=== PATIENT | female | born 2000 | race Caucasian/White ===

== ENCOUNTER → 2021-04-26 15:25 | Outpatient (BNVA) | payer BC, MEDICAID, SELFPAY | PROVIDERS: Family Provider Family Medicine; PCP Family Medicine; Visit Provider Nurse Practitioner Women's Health | DX: N92.6 Irregular menstruation, unspecified (principal); N76.0 Acute vaginitis | CPT/HCPCS: 84146; 84439; 84443; 84702; 87070; 87077; 87205; 87491; 87591; 87661 ==

== ENCOUNTER → 2021-06-02 11:33 | Outpatient (BNVA) | payer BC, MEDICAID, SELFPAY | PROVIDERS: Family Provider Family Medicine; PCP Family Medicine; Visit Provider Nurse Practitioner | DX: J02.9 Acute pharyngitis, unspecified (principal); J02.0 Streptococcal pharyngitis | CPT/HCPCS: 87880 ==

== ENCOUNTER → 2022-05-18 12:31 | Outpatient (BNVA) | payer BC, MEDICAID, SELFPAY | PROVIDERS: Family Provider Family Medicine; PCP Family Medicine; Visit Provider Nurse Practitioner | DX: J02.9 Acute pharyngitis, unspecified (principal); J01.90 Acute sinusitis, unspecified | CPT/HCPCS: 87071; 87880 ==

== ENCOUNTER 2023-03-24 14:37 | Emergency (ER) | payer BC, MEDICAID, SELFPAY ==
[2023-03-24 14:43] VITALS: BP 124/86; PULSE 90; RESP 16; TEMP 36.9; O2SAT 98; BMI 19.9
--- NOTE | 2023-03-24 15:00 | US_ITS ---
WS: [id number] Obstetrical ultrasound, limited. COMPARISON: None. HISTORY: Bleeding and cramping. Single intrauterine gestation is identified. Heart rate at 153 bpm. [place]-rump length 7.1 cm. Normal amount of amniotic fluid surrounding the fetus. Cervix is closed. Placenta is developing anteriorly and fundally. No abruption or previa. There is mi ld distortion of the uterus along the lower uterine segment anterior to the cervix. This is probably a small [place]. Alternatively this could be an area of developing hematoma. This is not adjace nt to the placenta. IMPRESSION: 1. No placental abruption or retroplacental hematoma. 2. Normal cardiac activity. 3. Gestational age 13 weeks and 2 days. 4. Prominent soft tissue with mild distortion of the lower anterior uterine segment. This is probably a small [place] contraction. If there is significant vaginal bleeding suggest short interval f ollow-up to exclude developing hematoma. This area is along the anterior lower uterine segment just t o the LEFT of midline.
--- NOTE | 2023-03-24 15:01 | W.ED.FEMALGU ---
HPI - Female Genitourinary General: Chief complaint: Vaginal Bleeding Stated complaint: 14 weeks preg/ vaginal bleed Time Seen by Provider: 03/24/23 14:53 Source: patient Mode of arrival: ambulatory Limitations: no limitations History of Present Illness: Patient is a 22-year-old female at approximately 14 weeks here for concerns of vaginal bleeding. Patient states she first noticed a small amount of brown blood last (approximately 5 days ago). She states she contacted her OB provider Dr. Ferguson who recommended continuing to closely monitor the bleeding. Patient states she did not have any further bleeding that day and into Thursday but states she began bleeding again Thursday evening and has continued to bleed small amounts of old blood throughout the weekend. She states she passed a small brown clot. She states bleeding has never required anything more than a panty liner. She has had some mild intermittent cramping. Patient states she has not been sexually active since she found out she was . Has no new sexual partners or concern for STDs. Is not having any pain currently. She has not noticed any fevers. MD elicited complaint: vaginal bleeding Onset (ago): day(s) Severity: mild Quality of pain: cramping Consistency: intermittent Vaginal discharge: none Vaginal bleeding: scant and dark red Exacerbating factors: none Relieving factors: none Associated symptoms: Reports no associated symptoms; Deny abdominal pain, nausea or vaginal discharge Treatment prior to arrival: none Patient : Yes Review of Systems Const: Denies: fever(s), chills, body aches, fatigue or malaise Card: Denies: chest pain Resp: Denies: dyspnea GI: Denies: abdominal pain, nausea, vomiting or diarrhea : Reports: vaginal bleeding; Denies: flank pain, difficulty voiding, dysuria, urinary frequency, urinary urgency, urinary hesitancy, genital lesions, genital pruritis, vaginal odor or vaginal discharge Musc: Denies: back pain Skin/Breast: Denies: rash PFSH ED PFSH: Medical History No pertinent past medical history neghx:htn,dm,thyroid,dvt/pe PCP: Dr. Slaughter PCOS (polycystic ovarian syndrome) Tick bite of right shoulder Surgical History No pertinent past surgical history Family History Mother Chronic kidney disease (CKD) Sister Hypertension Thyroid disease Denies family history of Colon cancer Ovarian cancer Diabetes Hyperlipidemia Breast cancer Lung disease Cancer Uterine cancer Stroke Social History Smoking and tobacco status: current every day smoker Physical Exam Const: COMMON NORMALS: no acute distress, average body habitus, patient oriented x3, no limitations, healthy appearing, alert and well nourished Resp: COMMON NORMALS: normal respiratory effort and clear to auscultation bilaterally AUSCULTATION: clear to auscultation bilaterally Cardio: COMMON NORMALS: regular rate and regular rhythm RATE: regular rate RHYTHM: regular rhythm GI: COMMON NORMALS: Normal to inspection, nondistended, normoactive bowel sounds present, Soft to palpation, non-tender, No hepatosplenomegaly present and no masses PALPATION: Yes Soft to palpation and Yes No hepatosplenomegaly present : COMMON NORMALS: Yes no CVA tenderness BLADDER/KIDNEY EXAM: Yes no CVA tenderness Back/Pelvis: COMMON NORMALS: no CVA tenderness Extremity: COMMON NORMALS: no clubbing, cyanosis or edema, no calf tenderness and no pedal edema Neuro: COMMON NORMALS: patient oriented x3 SENSORIUM/ORIENTATION: Yes alert Skin: COMMON NORMALS: no rashes or lesions noted GENERAL SKIN EXAM: no rashes or lesions noted Course Vital Signs: Vital signs: Vital Signs Temperature 98.4 F 03/24/23 14:43 Pulse Rate 90 03/24/23 14:43 Respiratory Rate 16 03/24/23 14:43 Blood Pressure 124/86 03/24/23 14:43 Pulse Oximetry 98 03/24/23 14:43 Oxygen Delivery Me thod Room Air 03/24/23 14:43 MDM - Female Medical Decision Making Patient's vital signs are stable. Blood work is unremarkable. Ultrasound showing a live intrauterine normal-appearing 13w2s fetus. There was report of prominent soft tissue with mild distortion of the lower anterior uterine segment that could probably be a small [place] contraction but suggested short-term follow-up to exclude developing hematoma. Patient made aware and will follow up with OB. Patient is stable for discharge. Lab Data 03/24/23 15:13 03/24/23 15:13 Laboratory Results WBC 9.11 10^3/uL (3.29-11.43) 03/24/23 15:13 RBC 4.29 10^6/uL (3.85-5.65) 03/24/23 15:13 Hgb 13.50 g/dL (11.27-16.99) 03/24/23 15:13 Hct 36.9 % (36-47) 03/24/23 15:13 MCV 86.0 fl (85-98) 03/24/23 15:13 MCH 31.5 pg (27-33) 03/24/23 15:13 MCHC 36.6 g/dL (30-55) 03/24/23 15:13 RDW 12.7 % (12.1-15.1) 03/24/23 15:13 Plt Count 213 10^3/cmm (157-399) 03/24/23 15:13 MPV 10.2 fL (7.4-10.4) 03/24/23 15:13 Neut % (Auto) 76.9 % 03/24/23 15:13 Lymph % (Auto) 15.7 % 03/24/23 15:13 [place] % (Auto) 5.3 % 03/24/23 15:13 Eos % (Auto) 1.4 % 03/24/23 15:13 Baso % (Auto) 0.3 % 03/24/23 15:13 Neut # (Auto) 7.00 10^3/uL (1.8-7.7) 03/24/23 15:13 Lymph # (Auto) 1.4 10^3/uL (0.8-4.8) 03/24/23 15:13 [place] # (Auto) 0.5 10^3/uL (0.2-0.9) 03/24/23 15:13 Eos # (Auto) 0.1 10^3/uL (0.0-0.8) 03/24/23 15:13 Baso # (Auto) 0.0 10^3/uL (0.0-0.1) 03/24/23 15:13 Nucleated RBC % (auto) 0 % 03/24/23 15:13 Nucleated RBCs # 0.0 /100WBC 03/24/23 15:13 Sodium 137 mmol/L (136-145) 03/24/23 15:13 Potassium 3.3 mmol/L (3.5-5.1) L 03/24/23 15:13 Chloride 104 mmol/L (98-107) 03/24/23 15:13 Carbon Dioxide 21 mmol/L (22-29) L 03/24/23 15:13 Anion Gap 15.3 (5-19) 03/24/23 15:13 BUN 10 mg/dL (6-20) 03/24/23 15:13 Creatinine 0.6 mg/dL (0.5-0.9) 03/24/23 15:13 GFR Calculation 125.0 mL/min (90-130) 03/24/23 15:13 Glucose 85 mg/dL (65-115) 03/24/23 15:13 Calculated Osmolality 282 mOsm/kg (285-295) L 03/24/23 15:13 Calcium 8.7 mg/dL (8.5-10.5) 03/24/23 15:13 Total Bilirubin 0.6 mg/dL (0.15-1.2) 03/24/23 15:13 AST 12 U/L (0-32) 03/24/23 15:13 ALT 10 U/L (0-33) 03/24/23 15:13 Alkaline Phosphatase 43 U/L (35-105) 03/24/23 15:13 Total Protein 6.7 g/dL (6.6-8.7) 03/24/23 15:13 Albumin 4.2 g/dL (3.5-5.2) 03/24/23 15:13 Globulin 2.5 g/dL (1.3-4.6) 03/24/23 15:13 Ser , Semi-Qnt 72228.00 mIU/mL 03/24/23 15:13 Blood Type O Positive 03/24/23 15:13 Rho(D) Type Positive 03/24/23 15:13 All radiology interpretation(s) finalized by discharge Discharge Plan Discharge Patient Disposition: Home Clinical Impression: Vaginal bleeding in Condition: Stable Prescriptions: No Action M-Laura Plus 27 mg iron- 1 mg tablet 1 tab PO DAILY Discharge Orders: Discharge ED (Routine); Ordered 03/24/23 Ordered By: Sunshine Casiano Referrals: Shahid Ferguson MD [Physician] - Alfonso Slaughter MD [Primary Care Provider] - Activity Restrictions/Additional Instructions: As we discussed please follow-up with your OB provider. You may return to the emergency department for worsening or severe vaginal bleeding, vaginal pain or cramping, or any other concerns you may have. Coding Level of Care Code ED Practicing Dermatologist for Nallely Stewart
[2023-03-24 15:32] LABS: Basophils % 0.3 %; Eosinophils # 0.1 10^3/uL (0.0-0.8); Eosinophils % 1.4 %; Hematocrit 36.9 % (36-47); Lymphocytes # 1.4 10^3/uL (0.8-4.8); Lymphocytes % 15.7 %; Mean Corpuscular HGB Conc 36.6 g/dL (30-55); Mean Corpuscular Hemoglobin 31.5 pg (27-33); Mean Platelet Volume 10.2 fL (7.4-10.4); Monocytes # 0.5 10^3/uL (0.2-0.9); Monocytes % 5.3 %; Neutrophils % 76.9 %; Nucleated Red Blood Cells % 0 %; Platelet Count 213 10^3/cmm (157-399); Red Blood Count 4.29 10^6/uL (3.85-5.65); Red Cell Distribution Width 12.7 % (12.1-15.1); White Blood Count 9.11 10^3/uL (3.29-11.43)
[2023-03-24 16:11] LABS: Alanine Aminotransferase 10 U/L (0-33); Albumin Level 4.2 g/dL (3.5-5.2); Alkaline Phosphatase 43 U/L (35-105); Anion Gap 15.3 (5-19); Aspartate Amino Transferase 12 U/L (0-32); Blood Urea Nitrogen 10 mg/dL (6-20); Calcium 8.7 mg/dL (8.5-10.5); Carbon Dioxide 21 mmol/L (22-29); Chloride 104 mmol/L (98-107); Creatinine Clr Calc Pharmacy 149.0894; Globulin 2.5 g/dL (1.3-4.6); Glucose 85 mg/dL (65-115); Osmolality Calculated 282 mOsm/kg (285-295); Potassium 3.3 mmol/L (3.5-5.1); Sodium 137 mmol/L (136-145); Total Bilirubin 0.6 mg/dL (0.15-1.2); Total Protein 6.7 g/dL (6.6-8.7)
== END 2023-03-24 16:21 | disposition home or self-care (01) ==
PROVIDERS: Emergency Provider Physician Assistant; PCP Family Medicine
DX: O46.91 Antepartum hemorrhage, unspecified, first trimester (principal); O99.331 Smoking (tobacco) complicating pregnancy, first trimester; F17.210 Nicotine dependence, cigarettes, uncomplicated; Z3A.13 13 weeks gestation of pregnancy
CPT/HCPCS: 36415; 76805; 80053; 84702; 85025; 86900; 99284

== ENCOUNTER 2023-09-17 00:37 | Inpatient (IN) | payer BC, MEDICAID, SELFPAY ==
[2023-09-16] VITALS (13 sets, daily range): BP systolic 96–124; BP diastolic 52–87; PULSE 64–82; BMI 21.8
[2023-09-16 19:49] LABS: Basophils % 0.2 %; Eosinophils % 0.3 %; Lymphocytes # 1.3 10^3/uL (0.8-4.8); Lymphocytes % 12.4 %; Mean Corpuscular HGB Conc 34.3 g/dL (30-55); Mean Corpuscular Volume 87.5 fl (85-98); Mean Platelet Volume 10.1 fL (7.4-10.4); Monocytes # 0.7 10^3/uL (0.2-0.9); Monocytes % 7.1 %; Neutrophils % 79.8 %; Nucleated Red Blood Cells % 0 %; Platelet Count 248 10^3/cmm (157-399); Red Cell Distribution Width 12.7 % (12.1-15.1)
[2023-09-17] VITALS (57 sets, daily range): BP systolic 90–137; BP diastolic 50–86; PULSE 56–164; RESP 16–18; TEMP 36–37.1; O2SAT 97–99; BMI 21.8
[2023-09-17] MEDS: lactated ringers 1,000 ML 999 ML IV ×2 (00:06→01:06)
[2023-09-17] MEDS: ROPivacaine syringe 100 MG/50 ML SYRINGE 10 MG EPIDURAL ×3 (01:17→06:32)
--- NOTE | 2023-09-17 01:22 | P.ANESASSM_ITS ---
Pre-Anesthetic Assessment Height/Weight: Height 1.75 m Weight 67.132 kg Pulse BP Pulse Ox O2 Del Method 69 114/60 97 Room Air 09/17/23 01:17 09/17/23 01:17 09/17/23 01:17 09/16/23 19:20 Preop Diagnosis: IUP Labor Epidural Familial anesthetic complications: None Was Beta Miller taken within 24 hours: N/A Was Clonidine taken within 24 hours: N/A Last intake: 09/16/23 2100 MEAL CLEARS- CURRENT Social Tobacco (VAPE) and No alcohol Exam alert, oriented x 3 and clear to auscultation bilaterally Airway Submandibular: within normal limits Cervical ROM: within normal limits Mallampati: Class II Dentition: full History/ROS No significant history except as noted Pulmonary None reported CV/HEM None reported None reported Hepatic None reported GI Gastroesophageal Reflux Disease Metabolic None reported Musc/skel None reported Neuropsych None reported Anesthetic Plan ASA status: 2 Anesthesia: Regional (specify below) Other: Labor Epidural Medications/Allergies Home Medications Medication Instructions Recorded Confirmed Last Taken Type vitamin with calcium 1 tab PO DAILY 03/24/23 03/24/23 03/24/23 History no.72-iron 27 mg-folic acid 1 mg tablet (M- Plus) Allergies Allergy/AdvReac Type Severity Reaction Status Date / Time diphenhydramine Allergy ALGY-Hives Verified 05/18/22 12:25 [From Benadryl] Current Medications Generic Name Dose Route Start Last Admin Trade Name Freq PRN Reason Stop Dose Admin Lactated Ringer's 1,000 mls @ 999 mls/hr 09/16/23 23:38 09/17/23 01:06 Lactated Ringers IV 999 mls/hr .Q1H1M PRN Administration See label comments Ropivacaine 100 mg in 50 mls @ 10 mls/hr 09/16/23 23:45 09/17/23 01:17 Naropin Syringe EPIDURAL 10 mls/hr .Q5H ELIZABETH Administration PFSH Anesthesia Medical History No pertinent past medical history neghx:htn,dm,thyroid,dvt/pe PCP: Dr. Slaughter PCOS (polycystic ovarian syndrome) Tick bite of right shoulder Surgical History No pertinent past surgical history Family History Mother Chronic kidney disease (CKD) Sister Hypertension Thyroid disease Denies family history of Colon cancer Ovarian cancer Diabetes Hyperlipidemia Breast cancer Lung disease Cancer Uterine cancer Stroke Social History Smoking and tobacco/nicotine status: current every day tobacco/nicotine user Female Reproductive History : 1 Data Anesthesia 09/16/23 19:24 Short CBC 09/16/23 Range/Units 19:24 WBC 10.40 (3.29-11.43) 10^3/uL Hgb 12.00 (11.27-16.99) g/dL Hct 35.0 L (36-47) % MCV 87.5 (85-98) fl Plt Count 248 (157-399) 10^3/cmm Neut % (Auto) 79.8 % Neut # (Auto) 8.30 H (1.8-7.7) 10^3/uL Blood Bank 09/16/23 19:24 Blood Type O Positive Rho(D) Type Rh positive Antibody Screen Negative Cardiac Studies: 2 No Data to Display Anesthesia Procedures Epidural Time Out Performed: Yes Consents Signed: Procedure Consent Consent: from patient, risks and benefits reviewed and patient agrees to proceed Lumbar Level: L3-L4 Epidural position: sitting Epidural procedure: sterile prep of area, 1% lidocaine to numb the area, negative for paresthesia passed, test dose given, 1.5% xylocaine 1:200k epi, placed PCEA, no systemic response, sterile dressing applied, L.U.D. no apparent complications and 0.2% Ropiavacaine @ mls/hr (10) Additional Comments: BECCA @ 4.5cm , first attempt, - heme -csf. catheter threaded to 12cm with ease. Adequate analgesia achieved.
[2023-09-17] MEDS: ondansetron 2 mg/ML SDV 2 mL 4 MG IVP (03:50)
[2023-09-17] MEDS: dextrose 5%-lactated ringers 1,000 ML 125 ML IV (04:55)
--- NOTE | 2023-09-17 06:28 | P.HP_ITS ---
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 The patient presented overnight with contractions. She initially started at 2 cm and slowly progressed overnight. Patient is now completely dilated. Patient has had reassuring heart tones overnight patient has had an unremarkable with no complications. Present Details : 1 Para: 0 care: good care Ultrasounds: normal 1st trimester US and normal mid trimester US Obstetrical complications: none Medical complications OB: none Labs Rubella: Immune RPR: Negative GBS: Negative HBsAG: Negative Review of Systems 2 Const: Denies: fever(s), chills, body aches, fatigue or malaise Card: Denies: chest pain Resp: Denies: dyspnea GI: Denies: abdominal pain, nausea, vomiting or diarrhea : Denies: flank pain, difficulty voiding, dysuria, urinary frequency, urinary urgency or urinary hesitancy Musc: Denies: back pain Skin/Breast: Denies: rash Medications/Allergies Home Medications Medication Instructions Recorded Confirmed Last Taken Type vitamin with calcium 1 tab PO DAILY 03/24/23 03/24/23 03/24/23 History no.72-iron 27 mg-folic acid 1 mg tablet (M- Plus) Allergies Allergy/AdvReac Type Severity Reaction Status Date / Time diphenhydramine Allergy ALGY-Hives Verified 05/18/22 12:25 [From Benadryl] 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 Slaughter PCOS (polycystic ovarian syndrome) Tick bite of right shoulder Surgical History No pertinent past surgical history Family History Mother Chronic kidney disease (CKD) Sister Hypertension Thyroid disease Denies family history of Colon cancer Ovarian cancer Diabetes Hyperlipidemia Breast cancer Lung disease Cancer Uterine cancer Stroke Social History Smoking and tobacco/nicotine status: current every day tobacco/nicotine user History History History 2 0 Term Miscarriages/Ectopic Living Children Vitals/I&O/Wt Last Vital Signs Pulse 85 09/17/23 06:20 BP 115/80 09/17/23 06:20 Pulse Ox 98 09/17/23 02:37 O2 Del Method Room Air 09/16/23 19:20 09/16/23 09/16/23 09/17/23 14:59 22:59 06:59 Intake Total 2048 Balance 2048 Weight last 48 hrs Weight 67.132 kg Weight 67.132 kg Physical Exam 2 Const: COMMON NORMALS: no acute distress and healthy appearing HENMT: COMMON NORMALS: normocephalic and moist oral mucous membranes Eye: COMMON NORMALS: no scleral icterus Neck/C-Spine: COMMON NORMALS: supple and no JVD Resp: COMMON NORMALS: normal respiratory effort and No retractions Cardio: COMMON NORMALS: no JVD, regular rate and regular rhythm GI: OTHER: Gravid uterus : COMMON NORMALS: Yes normal external appearance Extremity: COMMON NORMALS: normal to inspection and no clubbing, cyanosis or edema Neuro: COMMON NORMALS: moves all extremities, no focal motor deficits and no sensory deficits noted Psych: COMMON NORMALS: mental status grossly normal, cooperative and normal affect Skin: COMMON NORMALS: no rashes or lesions noted Urinary Catheter Management: Storey: Cath Placed During This Visit: yes Reason for Continuing Indwelling Catheter: Accurate Measurement of Urinary Output in Critically Ill Patients Urinary Catheter Date of Insertion: 09/17/23 Urinary Catheter Time of Insertion: 02:45 Data 09/16/23 19:24 Results Labs OB ([facility]): 2 Obstetrics US 03/26/23 Blood Type O Positive 09/16/23 Antibody Screen Negative 09/16/23 Hct 35.0 % (36-47) L 09/16/23 Hgb 12.00 g/dL (11.27-16.99) 09/16/23 Rho(D) Type Rh positive 09/16/23 Plt Count 248 10^3/cmm (157-399) 09/16/23 TSH 1.14 uIU/mL (0.27-4.20) 04/26/21 Free T4 1.24 ng/dL (0.82-1.77) 04/26/21 Ser , Semi-Qnt 28045.00 mIU/mL 03/24/23 Prolactin 22.84 ng/mL (4.8-23.3) 04/26/21 A&P Assessment and plan (1) Term : Continue with labor management. Plan to proceed with vaginal delivery. (2) 39 weeks gestation of : Attestations 2 Medical Necessity Statement*: Patient admitted overnight for labor. Anticipate 2 midnight stay. Coding Level of Care Code Acute Code for Chg Fwd Diagnoses Term Z34.90 39 weeks gestation of Z3A.39
[2023-09-17] MEDS: oxytocin 30 UNIT/500 ML BAG 600 UNIT IV (07:07)
--- NOTE | 2023-09-17 07:27 | PM.DELIVERY ---
Delivery Note: Date of delivery: September 17, 2023 Pre-delivery diagnoses: Term intrauterine Post-delivery diagnoses: Same, viable infant male Procedure: Spontaneous vaginal delivery Delivering Physician: Dr. Shahid Ferguson Findings: 300 Pre-Delivery Course: This is a 22-year-old G1, P1 presented at 39 weeks 2 days with contractions. The patient progressed to completion over overnight without incident. Delivery: This patient was deemed to be completely dilated the patient was placed into the normal lithotomy position. Patient started pushing with contractions. After several rounds of contractions and pushing the patient delivered infant's head without difficulty. Soon followed by anterior shoulder and body. Infant was then placed on mother's abdomen. Her delay the cord was clamped and cut. Placenta was then delivered without complication. Review of the perineum did demonstrate a second-degree perineal tear and a left labial tear. Second-degree perineal tear was repaired with 2-0 Vicryl and the labial tear was repaired with 2-0 chromic. At the end of the procedure uterine tone was good and bleeding was minimal. Post-Delivery Status: Stable History History History 1 Term 1 Miscarriages/Ectopic 0 Living Children 1 A&P Assessment and plan (1) Vaginal delivery: Normal vaginal delivery without complication. Proceed with routine care Coding Level of Care Code Acute Code for Chg Fwd Diagnoses Vaginal delivery O80
[2023-09-17] MEDS: benzocaine-menthol 78 gm Canister 1 SPRAY TOPICAL (08:34)
[2023-09-17] MEDS: docusate sodium 100 mg Capsule PO ×2 (08:35→18:00)
[2023-09-17] MEDS: ibuprofen 800 mg tablet PO ×3 (08:35→20:00)
[2023-09-17] MEDS: acetaminophen 325 mg Tablet 650 MG PO ×2 (13:00→19:59)
[2023-09-17 19:48] LABS: Hematocrit 29.6 % (36-47); Mean Corpuscular HGB Conc 33.8 g/dL (30-55); Mean Corpuscular Hemoglobin 29.9 pg (27-33); Mean Corpuscular Volume 88.4 fl (85-98); Mean Platelet Volume 10.1 fL (7.4-10.4); Platelet Count 185 10^3/cmm (157-399); Red Blood Count 3.35 10^6/uL (3.85-5.65); Red Cell Distribution Width 12.6 % (12.1-15.1); White Blood Count 8.82 10^3/uL (3.29-11.43)
[2023-09-17] MEDS: lanolin oint 7 gm 1 APPLIC TOPICAL (19:59)
[2023-09-18] MEDS: acetaminophen 325 mg Tablet 650 MG PO ×2 (03:07→10:24)
[2023-09-18 05:00] VITALS: BP 117/74; PULSE 73; RESP 18; TEMP 36.6; O2SAT 97
--- NOTE | 2023-09-18 07:18 | P.DS_ITS ---
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 Hospital Course Hospital Course The patient's labor progressed as expected. Patient delivered a viable male without difficulty or complication. care was unremarkable. Patient is breast-feeding without difficulty. Lochia has been appropriate. Vital signs stable. Information Peripartum Data: Infant Delivery Method: Vaginal Laceration description: Perineal - 2nd Degree Episiotomy description: None complications: none Physical Exam Const: COMMON NORMALS: no acute distress and healthy appearing HENMT: COMMON NORMALS: normocephalic and moist oral mucous membranes HEAD & SCALP: normocephalic Eye: COMMON NORMALS: no scleral icterus Neck/C-Spine: COMMON NORMALS: supple and no JVD Resp: COMMON NORMALS: normal respiratory effort and No retractions Cardio: COMMON NORMALS: no JVD, regular rate and regular rhythm RATE: regular rate RHYTHM: regular rhythm GI: OTHER: Uterus firm and below the umbilicus : COMMON NORMALS: Yes normal external appearance Extremity: COMMON NORMALS: normal to inspection and no clubbing, cyanosis or edema Neuro: COMMON NORMALS: moves all extremities, no focal motor deficits and no sensory deficits noted Psych: COMMON NORMALS: mental status grossly normal, cooperative and normal affect Skin: COMMON NORMALS: no rashes or lesions noted GENERAL SKIN EXAM: no rashes or lesions noted Urinary Catheter Management: Storey: Cath Placed During This Visit: yes, but has since been removed by the nurse Reason for Continuing Indwelling Catheter: Decision to DC Catheter Urinary Catheter Date of Insertion: 09/17/23 Urinary Catheter Time of Insertion: 02:45 Date Urinary Catheter Removed: 09/17/23 Time Urinary Catheter Discontinued: 06:30 History History History 1 Term 1 Miscarriages/Ectopic 0 Living Children 1 Discharge Data Studies Completed and Pending Laboratory Results WBC 8.82 10^3/uL (3.29-11.43) 09/17/23 19: RBC 3.35 10^6/uL (3.85-5.65) L 09/17/23 19:37 Hgb 10.00 g/dL (11.27-16.99) L 09/17/23 19:37 Hct 29.6 % (36-47) L 09/17/23 19: MCV 88.4 fl (85-98) 09/17/23 19: MCH 29.9 pg (27-33) 09/17/23 19:37 MCHC 33.8 g/dL (30-55) 09/17/23 19:37 RDW 12.6 % (12.1-15.1) 09/17/23 19: Plt Count 185 10^3/cmm (157-399) 09/17/23 19: MPV 10.1 fL (7.4-10.4) 09/17/23 19: Neut % (Auto) 79.8 % 09/16/23: Lymph % (Auto) 12.4 % 09/16/23: [place] % (Auto) 7.1 % 09/16/23: Eos % (Auto) 0.3 % 09/16/23: Baso % (Auto) 0.2 % 09/16/23: Neut # (Auto) 8.30 10^3/uL (1.8-7.7) H 09/16/23: Lymph # (Auto) 1.3 10^3/uL (0.8-4.8) 09/16/23: [place] # (Auto) 0.7 10^3/uL (0.2-0.9) 09/16/23: Eos # (Auto) 0.0 10^3/uL (0.0-0.8) 09/16/23: Baso # (Auto) 0.0 10^3/uL (0.0-0.1) 09/16/23: Nucleated RBC % (auto) 0 % 09/16/23: Nucleated RBCs # 0.0 /100WBC 09/16/23: Blood Type O Positive 09/16/23: Rho(D) Type Rh positive 03/20/24 19:24 Antibody Screen Negative 09/16/23 19:24 Vitals Last Vital Signs Temp 97.9 F 09/18/23 05:00 Pulse 73 09/18/23 05:00 Resp 18 09/18/23 05:00 BP 117/74 09/18/23 05:00 Pulse Ox 97 09/18/23 05:00 O2 Del Method Room Air 09/18/23 05:00 Results Labs OB ([facility]): Obstetrics US 03/26/23 Blood Type O Positive 09/16/23 Antibody Screen Negative 09/16/23 Hct 29.6 % (36-47) L 09/17/23 Hgb 10.00 g/dL (11.27-16.99) L 09/17/23 Rho(D) Type Rh positive 09/16/23 Plt Count 185 10^3/cmm (157-399) 09/17/23 TSH 1.14 uIU/mL (0.27-4.20) 04/26/21 Free T4 1.24 ng/dL (0.82-1.77) 04/26/21 Ser , Semi-Qnt 06221.00 mIU/mL 03/24/23 Prolactin 22.84 ng/mL (4.8-23.3) 04/26/21 Discharge Plan Discharge Patient Disposition: Home Condition: Stable Prescriptions: Continued M- Plus 27 mg iron- 1 mg tablet 1 tab PO DAILY Discharge Orders: Discharge Order (Routine); Ordered 09/18/23 Ordered By: Shahid Ferguson Referrals: Shahid Ferguson MD [Physician] - 6 Weeks Discharge Diet: Usual diet Discharge Activity: Limit activity as instructed Patient Instructions: Depression (DC), Preeclampsia During (DC), Opioid Safety (DC), Hemorrhage (DC), OB Discharge Report, OB Food/Drug Interaction Guide, OB Care at Home, Opioid Safety, Abnormal Bleeding Discharge Attestations 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
[2023-09-18] MEDS: docusate sodium 100 mg Capsule PO (08:09)
[2023-09-18] MEDS: ibuprofen 800 mg tablet PO ×2 (08:09→15:37)
[2023-09-18 10:00] VITALS: BP 104/66; PULSE 80; RESP 18; TEMP 36.8; O2SAT 97
--- NOTE | 2023-09-18 14:15 | ANE.PACU2 ---
Inpatient post-anesthesia follow up: Airway intact: Yes Vital signs: Temperature 97.9 F Pulse Rate 73 Respiratory Rate 18 Blood Pressure 117/74 Pulse Oximetry 97 Oxygen Delivery Me thod Room Air Oxygen Flow Rate Fraction of Inspir ed Oxygen Hydration adequate: Yes Nausea and vomiting: No Pain level: 1 Mental status: Baseline Epidural Start/End: Epidural Start Date: 09/17/23 Epidural Start Time: 01:51 Epidural End Date: 09/17/23 Epidural End Time: 10:40
[2023-09-18 15:48] VITALS: BP 124/85; PULSE 74; RESP 16; TEMP 36.6; TEMP 36.7; O2SAT 98
[2023-09-18 16:08] VITALS: BP 124/85; PULSE 74; RESP 16; TEMP 36.6; O2SAT 98
== END 2023-09-18 16:08 | disposition home or self-care (01) | DRG 807 ==
LOC: OBGYN 07:28
PROVIDERS: Admitting Provider Family Medicine; PCP Family Medicine; Visit Provider Family Medicine
DX: O70.1 Second degree perineal laceration during delivery (principal); Z37.0 Single live birth; O99.334 Smoking (tobacco) complicating childbirth; F17.290 Nicotine dependence, other tobacco product, uncomplicated; Z3A.39 39 weeks gestation of pregnancy
CPT/HCPCS: 36415; 51702; 59025; 59409; 85025; 85027; 86850; 86900; 96374; 98960; 99211; J2405; J2590; J2795; J7120; J7121

== ENCOUNTER 2023-11-19 15:46 | Day surgery (SDC) | payer BC, MEDICAID, SELFPAY ==
[2023-11-19] VITALS (12 sets, daily range): BP systolic 99–121; BP diastolic 59–77; PULSE 58–82; RESP 10–18; TEMP 36.2–37.1; O2SAT 94–100
--- NOTE | 2023-11-19 16:15 | ED_ITS ---
HPI - Female Genitourinary 2 General: Chief complaint: Vaginal Bleeding Stated complaint: IUD issues sent by Dr Ruiz Time Seen by Provider: 11/19/23 15:54 Source: patient Mode of arrival: ambulatory Limitations: no limitations History of Present Illness: 23-year-old female states that she had a IUD placed last week states since then she been having pelvic pain along with vaginal bleeding she had an ultrasound done today that showed migration of the IUD in the pelvis patient was sent here by Dr. Ayala I have spoke to Dr. Ayala about this as well she rates her pain currently a 4 out of 10 her vitals here are normal she denies any vomiting or diarrhea or fevers Associated symptoms: Reports abdominal pain; Deny headache(s) or nausea Review of Systems 2 Const: Denies: fever(s), chills, body aches or change in appetite ENMT: Denies: throat pain or dental pain Card: Denies: chest pain Resp: Denies: dyspnea GI: Reports: abdominal pain; Denies: nausea, vomiting or diarrhea : Reports: vaginal bleeding; Denies: dysuria Musc: Denies: neck pain or back pain Skin/Breast: Denies: rash Neuro: Denies: headache(s) PFSH ED 2 PFSH: Medical History Vaginal delivery Tick bite of right shoulder PCOS (polycystic ovarian syndrome) No pertinent past medical history neghx:htn,dm,thyroid,dvt/pe PCP: Dr. Slaughter Surgical History No pertinent past surgical history Family History Mother Chronic kidney disease (CKD) Sister Hypertension Thyroid disease Denies family history of Colon cancer Ovarian cancer Diabetes Hyperlipidemia Breast cancer Lung disease Cancer Uterine cancer Stroke Social History Smoking and tobacco/nicotine status: current every day tobacco/nicotine user Physical Exam 2 Const: COMMON NORMALS: no acute distress, patient oriented x3 and healthy appearing HENMT: COMMON NORMALS: normocephalic and atraumatic HEAD & SCALP: n ormocephalic and atraumatic Eye: COMMON NORMALS: conjunctivae normal CONJUNCTIVA: Yes conjunctivae normal Neck/C-Spine: COMMON NORMALS: full ROM and supple Chest: COMMONS NORMALS: normal inspection of the chest Resp: COMMON NORMALS: normal respiratory effort Cardio: COMMON NORMALS: regular rate, regular rhythm and No murmurs present (Cardio) RATE: regular rate RHYTHM: regular rhythm GI: COMMON NORMALS: Normal to inspection, nondistended, normoactive bowel sounds present, Soft to palpation, non-tender and no masses PALPATION: Yes Soft to palpation Extremity: COMMON NORMALS: normal to inspection and full ROM Neuro: COMMON NORMALS: patient oriented x3, moves all extremities and no focal motor deficits Psych: COMMON NORMALS: mental status grossly normal, Normal thought process present and cooperative THOUGHT PROCESS: Normal thought process present Skin: COMMON NORMALS: no rashes or lesions noted and no wounds GENERAL SKIN EXAM: no rashes or lesions noted Course 2 Vital Signs: Vital signs: Vital Signs Temperature 97.9 F 11/19/23 16:00 Pulse Rate 75 11/19/23 16:00 Respiratory Rate 14 11/19/23 16:00 Blood Pressure 112/76 11/19/23 16:00 Pulse Oximetry 98 11/19/23 16:00 Oxygen Delivery Me thod Room Air 11/19/23 16:00 MDM - Female Medical Decision Making Patient presents here with a migrated IUD she was sent here after ultrasound Dr. Ayala has seen patient in the ER and is going to take her to the OR at this time. She has been stable here Medical Records I reviewed the patient's medical records. Lab Data I reviewed the patient's lab results. 11/19/23 16:18 11/19/23 16:18 Laboratory Results WBC 6.29 10^3/uL (3.29-11.43) 11/19/23 16:18 RBC 4.76 10^6/uL (3.85-5.65) 11/19/23 16:18 Hgb 13.30 g/dL (11.27-16.99) 11/19/23 16:18 Hct 40.7 % (36-47) 11/19/23 16:18 MCV 85.5 fl (85-98) 11/19/23 16:18 MCH 27.9 pg (27-33) 11/19/23 16:18 MCHC 32.7 g/dL (30-55) 11/19/23 16:18 RDW 12.6 % (12.1-15.1) 11/19/23 16:18 Plt Count 259 10^3/cmm (157-399) 11/19/23 16:18 MPV 10.1 fL (7.4-10.4) 11/19/23 16:18 Neut % (Auto) 63.1 % 11/19/23 16:18 Lymph % (Auto) 26.6 % 11/19/23 16:18 [place] % (Auto) 6.7 % 11/19/23 16:18 Eos % (Auto) 2.4 % 11/19/23 16:18 Baso % (Auto) 1.0 % 11/19/23 16:18 Neut # (Auto) 3.98 10^3/uL (1.8-7.7) 11/19/23 16:18 Lymph # (Auto) 1.7 10^3/uL (0.8-4.8) 11/19/23 16:18 [place] # (Auto) 0.4 10^3/uL (0.2-0.9) 11/19/23 16:18 Eos # (Auto) 0.2 10^3/uL (0.0-0.8) 11/19/23 16:18 Baso # (Auto) 0.1 10^3/uL (0.0-0.1) 11/19/23 16:18 Nucleated RBC % (auto) 0 % 11/19/23 16:18 Nucleated RBCs # 0.0 /100WBC 11/19/23 16:18 No radiology studies performed this visit Discharge Plan Discharge Patient Disposition: Admitted As Inpatient Clinical Impression: IUD migration Condition: Stable Prescriptions: No Action M- Plus 27 mg iron- 1 mg tablet 1 tab PO DAILY Referrals: Alfonso Slaughter MD [Primary Care Provider] - Coding Level of Care Code ED Waffle Machine Operator for Nallely Stewart
[2023-11-19 16:34] LABS: Basophils # 0.1 10^3/uL (0.0-0.1); Eosinophils # 0.2 10^3/uL (0.0-0.8); Eosinophils % 2.4 %; Hematocrit 40.7 % (36-47); Lymphocytes # 1.7 10^3/uL (0.8-4.8); Lymphocytes % 26.6 %; Mean Corpuscular HGB Conc 32.7 g/dL (30-55); Mean Corpuscular Hemoglobin 27.9 pg (27-33); Mean Corpuscular Volume 85.5 fl (85-98); Mean Platelet Volume 10.1 fL (7.4-10.4); Monocytes # 0.4 10^3/uL (0.2-0.9); Monocytes % 6.7 %; Neutrophils # 3.98 10^3/uL (1.8-7.7); Neutrophils % 63.1 %; Nucleated Red Blood Cells % 0 %; Platelet Count 259 10^3/cmm (157-399); Red Blood Count 4.76 10^6/uL (3.85-5.65); Red Cell Distribution Width 12.6 % (12.1-15.1); White Blood Count 6.29 10^3/uL (3.29-11.43)
[2023-11-19 17:05] LABS: Alanine Aminotransferase 25 U/L (0-33); Albumin Level 4.5 g/dL (3.5-5.2); Alkaline Phosphatase 70 U/L (35-105); Anion Gap 15.6 (5-19); Aspartate Amino Transferase 20 U/L (0-32); Blood Urea Nitrogen 9 mg/dL (6-20); Calcium 9.5 mg/dL (8.5-10.5); Carbon Dioxide 24 mmol/L (22-29); Chloride 103 mmol/L (98-107); Creatinine Clr Calc Pharmacy 108.3632; Globulin 2.9 g/dL (1.3-4.6); Glomerular Filtration Rate 88.9 mL/min (90-130); Glucose 84 mg/dL (65-115); Osmolality Calculated 286 mOsm/kg (285-295); Potassium 3.6 mmol/L (3.5-5.1); Sodium 139 mmol/L (136-145); Total Protein 7.4 g/dL (6.6-8.7)
[2023-11-19 17:36] LABS: OR HCG Qualitative Urine Negative (Negative)
--- NOTE | 2023-11-19 17:40 | P.ANESASSM_ITS ---
Pre-Anesthetic Assessment Height/Weight: Height 1.75 m Weight 57.606 kg Temp Pulse Resp BP Pulse Ox O2 Del Method 98.8 F 70 18 117/75 99 Room Air 11/19/23 17:16 11/19/23 17:16 11/19/23 17:16 11/19/23 17:16 11/19/23 17:16 11/19/23 17:16 Preop Diagnosis: intrauterine device migration Operation Date: 11/19/23 17:05 Proposed Procedures p IUD Removal(Not Applicable) - Leonides Ayala MD Familial anesthetic complications: None Was Beta Miller taken within 24 hours: N/A Was Clonidine taken within 24 hours: N/A Last intake: Intake Last Liquid Date 11/19/23 Last Liquid Time 14:00 Last Solid Date 11/18/23 Last Solid Time 18:00 Social No alcohol vapes daily Exam alert, oriented x 3 and clear to auscultation bilaterally Airway Mallampati: Class I Dentition: full History/ROS No significant history except as noted Pulmonary None reported CV/HEM None reported None reported Hepatic None reported GI Gastroesophageal Reflux Disease Metabolic None reported Musc/skel None reported Neuropsych None reported Anesthetic Plan ASA status: 1E Anesthesia: Anesthesia Evaluation and General Risk of > 500 ml blood loss (7ml/kg in children): Yes, adequate IV access and fluids planned Medications/Allergies Home Medications Medication Instructions Recorded Confirmed Last Taken Type vitamin with calcium 1 tab PO DAILY 03/24/23 09/17/23 03/24/23 History no.72-iron 27 mg-folic acid 1 mg tablet (M-Laura Plus) Allergies Allergy/AdvReac Type Severity Reaction Status Date / Time diphenhydramine Allergy ALGY-Hives Verified 11/19/23 16:05 [From Benadryl] Current Medications Generic Name Dose Route Start Last Admin Trade Name Freq PRN Reason Stop Dose Admin Sodium Chloride 1,000 mls @ 30 mls/hr 11/19/23 17:45 11/19/23 17:56 Sodium Chloride 0.9% IV 30 mls/hr .Q24H ELIZABETH Administration Scopolamine 1 patch 11/19/23 17:33 11/19/23 17:56 Scopolamine 1.5 Patch TRANSDERMA 11/19/23 17:34 1 patch ONCE ONE Administration PFSH Anesthesia Medical History Vaginal delivery Tick bite of right shoulder PCOS (polycystic ovarian syndrome) No pertinent past medical history neghx:htn,dm,thyroid,dvt/pe PCP: Dr. Slaughter Surgical History No pertinent past surgical history Family History Mother Chronic kidney disease (CKD) Sister Hypertension Thyroid disease Denies family history of Colon cancer Ovarian cancer Diabetes Hyperlipidemia Breast cancer Lung disease Cancer Uterine cancer Stroke Social History Smoking and tobacco/nicotine status: current every day tobacco/nicotine user Data Anesthesia 11/19/23 16:18 11/19/23 16:18 Short CBC 11/19/23 Range/Units 16:18 WBC 6.29 (3.29-11.43) 10^3/uL Hgb 13.30 (11.27-16.99) g/dL Hct 40.7 (36-47) % MCV 85.5 (85-98) fl Plt Count 259 (157-399) 10^3/cmm Neut % (Auto) 63.1 % Neut # (Auto) 3.98 (1.8-7.7) 10^3/uL BMP 11/19/23 16:18 Sodium 139 Potassium 3.6 Chloride 103 Carbon Dioxide 24 BUN 9 Creatinine 0.8 Glucose 84 Calcium 9.5 Liver Function 11/19/23 Range/Units 16:18 Total Bilirubin 1.0 (0.15-1.2) mg/dL AST 20 (0-32) U/L ALT 25 (0-33) U/L Alkaline Phosphatase 70 (35-105) U/L Albumin 4.5 (3.5-5.2) g/dL Cardiac Studies: 2 No Data to Display
--- NOTE | 2023-11-19 17:45 | P.HP_ITS ---
Providers/Chief Complaint 2 Admitting Physician: Leonides Ayala MD Primary Care Provider: Alfonso Slaughter MD Chief Complaint: IUD issues sent by Dr Ruiz [facility] [employer] History of Present Illness Mariann Aguilar is a 23 year old female s/p intrauterine device insertion November 10, 2023 noted worsening pain and bleeding past three days was seen by Dr. 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 Slaughter Surgical History No pertinent past surgical history Family History Mother Chronic kidney disease (CKD) Sister Hypertension Thyroid disease Denies family history of Colon cancer Ovarian cancer Diabetes Hyperlipidemia Breast cancer Lung disease Cancer Uterine cancer Stroke Social History Smoking and tobacco/nicotine status: current every day tobacco/nicotine user History History History 2 1 Term 1 Miscarriages/Ectopic 0 Living Children 1 Vitals/I&O/Wt Last Vital Signs Temp 98.8 F 11/19/23 17:16 Pulse 70 11/19/23 17:16 Resp 18 11/19/23 17:16 BP 117/75 11/19/23 17:16 Pulse Ox 99 11/19/23 17:16 O2 Del Method Room Air 11/19/23 17:16 Weight last 48 hrs Weight 127 lb Physical Exam 2 Narrative: comfortable, awake, alert afebrile, VS normal HEENT: normal Lungs: clear Cor: RRR Abd: soft, nondistended mild tenderness lower quadrants no rebound Ext: normal Data 11/19/23 16:18 11/19/23 16:18 Results Labs OB ([facility]): 2 Obstetrics US 03/26/23 Blood Type O Positive 09/16/23 Antibody Screen Negative 09/16/23 Hct 40.7 % (36-47) 11/19/23 Hgb 13.30 g/dL (11.27-16.99) 11/19/23 Rho(D) Type Rh positive 09/16/23 Plt Count 259 10^3/cmm (157-399) 11/19/23 TSH 1.14 uIU/mL (0.27-4.20) 04/26/21 Free T4 1.24 ng/dL (0.82-1.77) 04/26/21 Ser , Semi-Qnt 09349.00 mIU/mL 03/24/23 Prolactin 22.84 ng/mL (4.8-23.3) 04/26/21 A&P Assessment and plan (1) IUD migration: intrauterine device located in extra-uterine intra-peritoneal location plan laparoscopy, removal of IUD, possible open laparotomy procedures and risks explained to patient risks include, but not limited to, infection, bleeding, injury to internal organs such as bladder and bowel, anesthesia, blood transfusions patient understands and wants to proceed Attestations 2 Medical Necessity Statement*: patient with extra-uterine migration of intrauterine device, now for surgical removal Coding Level of Care Code Acute Code for Chg Fwd Diagnoses IUD migration T83.32XA Time Spent (min) 60
--- NOTE | 2023-11-19 17:52 | W.PM.OPSUD ---
Surgery/Procedure H&P Update DATE OF PROCEDURE: November 19, 2023 DATE H&P PERFORMED: 11/19/23 H&P UPDATE INFORMATION: I have reviewed H&P completed within last 30 days, I have examined patient prior to procedure and No changes to prior documentation PREOP DIAGNOSIS: intrauterine device migration PLANNED PROCEDURE: Operation Date: 11/19/23 17:05 Proposed Procedures p IUD Removal(Not Applicable) - Leonides Ayala MD
[2023-11-19] MEDS: sodium chloride 0.9% 1,000 ML 30 ML IV (17:56)
[2023-11-19] MEDS: scopolamine 1.5 Patch 1 PATCH TRANSDERMA (17:56)
[2023-11-19] MEDS: fentaNYL 50 mcg/mL INJ 2mL IVP (19:02)
[2023-11-19] MEDS: oxyCODONE-APAP 5-325 mg Tablet 2 TAB PO (20:00)
--- NOTE | 2023-11-19 20:10 | ANE.PACU2 ---
Inpatient post-anesthesia follow up: Airway intact: Yes Vital signs: Temperature 98.2 F Pulse Rate 60 Respiratory Rate 18 Blood Pressure 107/77 Pulse Oximetry 99 Oxygen Delivery Me thod Room Air Oxygen Flow Rate 6 Fraction of Inspir ed Oxygen Hydration adequate: Yes Nausea and vomiting: No Pain level: 1 Mental status: Baseline
--- NOTE | 2023-11-19 20:17 | PM.OP ---
Operative Report Date of procedure: November 19, 2023 Pre-op diagnosis: Intrauterine device in extrauterine position Pelvic pain Abnormal uterine bleeding Post-op diagnosis: Intact intrauterine device in posterior cul-de-sac 1 cm perforation in posterior uterine wall Otherwise normal uterus, tubes and ovaries Post-op findings: Uterus with 1 cm perforation of posterior uterine wall Intact intrauterine device in posterior cul-de-sac Otherwise normal uterus Normal tubes and ovaries Small amount of blood in posterior cul-de-sac Procedure done: Laparoscopy Removal of intrauterine device Implants: none Specimens removed/disposition: intrauterine device, complete and intact, sent to pathology Surgeon: Leonides Ayala MD Anesthesia: General Estimated blood loss (mL): 5 Complications: none Condition: stable Disposition: PACU Brief History: 23 y.o. Had intrauterine device placed November 10, 2023 Began to have pelvic pain and vaginal bleeding Pelvic sono showed intrauterine device in posterior cul-de-sac.. Procedure: Informed consent obtained. The patient was taken to the OR and placed supine on the table. General endotracheal anesthesia was given. The patient was then placed in dorsolithotomy position. The abdomen and perineum were prepped and draped in usual fashion. A 5 mm subumbilical skin incision was made. A laparoscopic trocar with sheath was inserted into the peritoneal cavity under direct vision with the laparoscope. Pneumoperitoneum was achieved. Two separate 5 mm incisions were made in the right and left mid-abdominal quadrants under direct visualization to accommodate additional trocars and sheaths. The pelvis was explored with the laparoscope. Small amount of blood was seen in the posterior cul-de-sac. A 1 cm perforation can be seen on the posterior uterine wall. An intact intrauterine device can be seen in the posterior cul-de-sac. This was extracted using an endograsper, seen to be complete and intact with both strings, and sent to pathology. No bleeding was seen. Normal ovaries and tubes were visualized. All instruments were then removed from the abdominal cavity after the pneumoperitoneum was allowed to escape. The skin incisions were closed with 4-O monocryl. Dermabond was applied. The patient was then awakened and taken to the recovery room in good condition. Postop condition stable. EBL 5 cc. There were no complications. Sponge and instrument counts were correct x two
== END 2023-11-19 20:06 | disposition home or self-care (01) ==
LOC: ER 16:59 → GSGYOACUTE 18:45 → ER 19:46 → OR 19:48
PROVIDERS: Anesthesiology; Emergency Provider Emergency Medicine; PCP Family Medicine; Visit Provider Obstetrics & Gynecology
PROC: 0UPD8HZ Removal of Contraceptive Device from Uterus and Cervix, Via Natural or Artificial Opening Endoscopic (ICD-10-PCS; CPT 58301; principal; 2023-11-19 17:05)
PROC: (CPT 49320; 2023-11-19 17:05)
DX: T83.89XA Other specified complication of genitourinary prosthetic devices, implants and grafts, initial encounter (principal); T83.39XA Other mechanical complication of intrauterine contraceptive device, initial encounter; Y76.8 Miscellaneous obstetric and gynecological devices associated with adverse incidents, not elsewhere classified
CPT/HCPCS: 58578; 36415; 80053; 81025; 85025; 88300; J2250; J2704; J2710; J3010; J3490; J7030

== ENCOUNTER → 2023-12-07 08:24 | Outpatient (BNVA) | payer BC, MEDICAID, SELFPAY | PROVIDERS: PCP Family Medicine; Visit Provider Obstetrics & Gynecology | DX: Z34.90 Encounter for supervision of normal pregnancy, unspecified, unspecified trimester (principal); Z98.890 Other specified postprocedural states; Z32.01 Encounter for pregnancy test, result positive | CPT/HCPCS: 84702 ==

== ENCOUNTER → 2023-12-08 11:28 | Outpatient (BNVA) | payer BC, MEDICAID, SELFPAY | PROVIDERS: PCP Family Medicine; Visit Provider Obstetrics & Gynecology | DX: Z32.01 Encounter for pregnancy test, result positive (principal) | CPT/HCPCS: 84702 ==

== ENCOUNTER → 2023-12-10 08:30 | Outpatient (BNVA) | payer BC, MEDICAID, SELFPAY | PROVIDERS: PCP Family Medicine; Visit Provider Obstetrics & Gynecology | DX: Z32.01 Encounter for pregnancy test, result positive (principal) | CPT/HCPCS: 84702 ==

== ENCOUNTER → 2024-01-05 08:14 | Outpatient (BNVA) | payer BC, MEDICAID, SELFPAY | PROVIDERS: PCP Family Medicine; Visit Provider Obstetrics & Gynecology | DX: Z36.87 Encounter for antenatal screening for uncertain dates (principal) | CPT/HCPCS: 76801 ==

== ENCOUNTER → 2024-02-02 09:54 | Outpatient (BNVA) | payer BC, MEDICAID, SELFPAY | PROVIDERS: PCP Family Medicine; Visit Provider Nurse Practitioner Women's Health | DX: O20.0 Threatened abortion (principal); Z3A.08 8 weeks gestation of pregnancy | CPT/HCPCS: 76801; 84315; 84702; 86850; 86900 ==

== ENCOUNTER → 2024-02-09 08:50 | Outpatient (BNVA) | payer BC, MEDICAID, SELFPAY | PROVIDERS: PCP Family Medicine; Visit Provider Nurse Practitioner Women's Health | DX: O03.9 Complete or unspecified spontaneous abortion without complication (principal) | CPT/HCPCS: 84702; 85025 ==

== ENCOUNTER → 2024-02-17 11:10 | Outpatient (BNVA) | payer BC, MEDICAID, SELFPAY | PROVIDERS: PCP Family Medicine; Visit Provider Obstetrics & Gynecology | DX: O03.4 Incomplete spontaneous abortion without complication (principal) | CPT/HCPCS: 76817 ==

== ENCOUNTER → 2024-05-15 10:24 | Outpatient (BNVA) | payer BC, MEDICAID, SELFPAY | PROVIDERS: PCP Family Medicine; Visit Provider Nurse Practitioner | DX: R05.9 Cough, unspecified (principal) | CPT/HCPCS: 87400; 87426 ==

== ENCOUNTER → 2024-06-20 09:18 | Outpatient (BNVA) | payer BC, MEDICAID, SELFPAY | PROVIDERS: PCP Family Medicine; Visit Provider Emergency Medicine | DX: J02.9 Acute pharyngitis, unspecified (principal); Z20.818 Contact with and (suspected) exposure to other bacterial communicable diseases | CPT/HCPCS: 87880 ==

== ENCOUNTER → 2024-06-29 10:26 | Outpatient (BNVA) | payer BC, MEDICAID, SELFPAY | PROVIDERS: PCP Family Medicine; Visit Provider Family Medicine | DX: J02.9 Acute pharyngitis, unspecified (principal) | CPT/HCPCS: 87071; 87880 ==

== ENCOUNTER → 2024-07-11 13:30 | Outpatient (BNVA) | payer BC, MEDICAID, SELFPAY | PROVIDERS: PCP Family Medicine; Visit Provider Nurse Practitioner Women's Health | DX: Z32.01 Encounter for pregnancy test, result positive (principal) | CPT/HCPCS: 81025; 84702; 86850; 86900 ==

== ENCOUNTER 2024-07-18 16:45 | Emergency (ER) | payer BC, MEDICAID, SELFPAY ==
[2024-07-18 17:03] VITALS: BP 114/78; PULSE 118; TEMP 36.8; O2SAT 100; BMI 18.7
[2024-07-18 17:48] LABS: Basophils % 0.2 %; Eosinophils % 0.3 %; Hematocrit 43.5 % (36-47); Lymphocytes # 0.3 10^3/uL (0.8-4.8); Lymphocytes % 3.2 %; Mean Corpuscular Hemoglobin 25.3 pg (27-33); Mean Corpuscular Volume 79.1 fl (85-98); Monocytes # 0.3 10^3/uL (0.2-0.9); Neutrophils % 93.2 %; Nucleated Red Blood Cells % 0 %; Platelet Count 294 10^3/cmm (157-399)
[2024-07-18 18:14] LABS: Alanine Aminotransferase 16 U/L (0-33); Albumin Level 4.9 g/dL (3.5-5.2); Alkaline Phosphatase 73 U/L (35-105); Anion Gap 17.9 (5-19); Aspartate Amino Transferase 13 U/L (0-32); Blood Urea Nitrogen 11 mg/dL (6-20); Calcium 9.5 mg/dL (8.5-10.5); Carbon Dioxide 22 mmol/L (22-29); Chloride 101 mmol/L (98-107); Creatinine Clr Calc Pharmacy 144.4843; Globulin 3.3 g/dL (1.3-4.6); Glomerular Filtration Rate 123.9 mL/min (90-130); Glucose 102 mg/dL (65-115); Lipase 21 U/L (13-60); Osmolality Calculated 284 mOsm/kg (285-295); Potassium 3.9 mmol/L (3.5-5.1); Sodium 137 mmol/L (136-145); Total Bilirubin 1.1 mg/dL (0.15-1.2); Total Protein 8.2 g/dL (6.6-8.7)
[2024-07-18 19:00] VITALS: BP 132/96; PULSE 110; RESP 16; O2SAT 100
--- NOTE | 2024-07-18 19:05 | USR_ITS ---
PROCEDURE INFORMATION: Exam: US First Trimester, Transabdominal and US , Transvaginal Exam date and time: 07/18/2024 7:37 PM Age: 23 years old Clinical indication: complicated by abdominal or pelvic pain; Generalized abdominal pain; First trimester (<14 weeks 0 days); Gestational age or lmp: 7w 6d by lmp; ; Patient HX: G3-p1-a1-l0 with severe pelvic cramping, no vag bleed. ; Additional info: Severe abd cramping, HX of sab LABS AND CLINICAL REPORTS: Choriogonadotropin in serum (Serum HCG): 42844 mIU/mL Last menstrual period start date: 05/24/2024 Gestational age (Established): 7 w 6 d Estimated due date (Established): 02/28/2025 TECHNIQUE: Imaging protocol: Real-time transabdominal obstetrical ultrasound of the maternal pelvis and a first trimester , less than 14 weeks 0 days, with image documentation. Transvaginal imaging was used for better evaluation of the fetus, adnexa, and/or cervix. COMPARISON: US OB transvaginal [id number] 02/17/2024 11:14 AM FINDINGS: GESTATION: Gestation: An intrauterine gestational sac, yolk sac and pole identified. Embryo/ cardiac activity (BPM): The estimated heart rate is 175-196 bpm. Extra-embryonic membranes/Placenta: Unremarkable. No subchorionic bleed. Amniotic/Chorionic fluid: Amniotic and extra-amniotic fluid are normal for gestational age. BIOMETRY: Gestational age (AUA): 8 w 3 d Estimated due date (AUA): The estimated due date is February 24, 2025. [place] rump length (CRL): The mean crown-rump length is 1.87 cm corresponding to an estimated ultrasound age of 8 weeks, 3 days. MATERNAL: Uterus: Uterus measures 10.16 cm x 8.64 cm x 4.91 cm. The uterus measures 10.2 x 4.9 x 8.6 cm. Cervix: The cervix is closed. Right ovary/adnexa: The right ovary measures 4.1 x 3.7 x 4.2 cm. There is a unilocular right ovarian cyst measuring 3.3 cm in diameter. Color and spectral Doppler interrogation of the right ovary demonstrates normal arterial and venous flow. Left ovary/adnexa: The left ovary measures 2.0 x 3.3 x 3.2 cm. Color and spectral Doppler interrogation of the left ovary demonstrates normal arterial and venous flow. Intraperitoneal space: No intraperitoneal free fluid. US/US OB <= 14 weeks fetus [id number] IMPRESSION: 1. Single viable intrauterine as detailed. 2. Negative exam for ovarian torsion. 3. Unilocular right ovarian cyst.
[2024-07-18 19:07] LABS: Bilirubin Urine Negative (Negative); Blood Urine Negative (Negative); Glucose Urine UA Negative (Normal); Ketones Urine 1+ (Negative); Leukocyte Esterase Urine 1+ (Negative); Nitrate Urine Negative (Negative); Protein Urine Trace (Negative); Specific Gravity, Urine 1.026 (1.005-1.030); Urine Appearance Cloudy (CLEAR); Urine Color Yellow (Yellow)
[2024-07-18] MEDS: sodium chloride 0.9% 1,000 ML 999 ML IV (19:08)
[2024-07-18] MEDS: ondansetron 2 mg/ML SDV 2 mL 4 MG IVP (19:08)
[2024-07-18 19:10] LABS: Add Urine Microscopic? YES; Bacteria Urine 1+ /hpf; Hyaline Casts Urine 2.05 /lpf; WBC Urine 21-50 /hpf (0-5)
[2024-07-18 19:14] LABS: Add Urine Culture? Yes
--- NOTE | 2024-07-18 19:20 | ED_ITS ---
HPI - Nausea/Vomiting/Diarrhea 2 General: Chief complaint: Nausea/Vomiting/Diarrhea Stated complaint: n,v,abd pain 8 weeks sent by organic section technical lead Time Seen by Provider: 07/18/24 18:44 Source: patient Mode of arrival: ambulatory Limitations: no limitations History of Present Illness: Patient is a 23-year-old female, A1, who is currently 8 weeks presenting to the emergency department with severe nausea and abdominal cramping onset today. States she has been throwing up all day, cannot keep anything down. Denies any vaginal bleeding or feeling she is going to pass out. States that with her last she miscarried, and was preeclamptic. Her OB is Dr. Ayala, states that she recently had a portable ultrasound but was told that they did not see much. She is tachycardic at this time, she is not reporting any fever or bowel or bladder changes. MD elicited complaint: nausea, vomiting and abdominal pain Onset (ago): hour(s) Associated nausea: Yes Associated abdominal pain: Yes Location of pain: Pelvis Quality: cramping Context: other () Associated symtoms: Reports nausea; Denies chest pain, diaphoresis, dizziness, dysuria, headache(s), palpitations or syncope Related Data Home Medications Medication Instructions Recorded Confirmed mv-mn no.97-folic 180 mcg-dha 25 tab PO 06/29/24 07/11/24 mg-herb no.293 25 mg chewable tablet (Alive Daily Support ) Previous Rx's Medication Instructions Recorded nitrofurantoin 100 mg PO BID 10 days #20 caps 07/18/24 monohydrate/macrocrystals 100 mg capsule (Macrobid) ondansetron 4 mg disintegrating 4 mg PO Q8H PRN nausea and 07/18/24 tablet vomiting #90 tabs Allergies Allergy/AdvReac Type Severity Reaction Status Date / Time diphenhydramine Allergy ALGY-Hives Verified 07/18/24 17:09 [From Benadryl] Review of Systems 2 General: Reports: 10 or more systems reviewed and unremarkable except in HPI and below Const: Denies: fever(s), chills, change in appetite, change in weight or diaphoresis ENMT: Denies: throat pain or hoarseness Card: Denies: chest pain, palpitations, lightheadedness or syncope Resp: Denies: dyspnea, productive cough or wheezing GI: Reports: abdominal pain, nausea and vomiting; Denies: diarrhea : Denies: flank pain, difficulty voiding, dysuria, urinary frequency, urinary urgency or vaginal bleeding Musc: Denies: neck pain or back pain Skin/Breast: Denies: rash or new lesions Neuro: Denies: headache(s) or dizziness PFSH ED 2 PFSH: Medical History Vaginal delivery Tick bite of right shoulder PCOS (polycystic ovarian syndrome) No pertinent past medical history neghx:htn,dm,thyroid,dvt/pe PCP: Dr. Slaughter Surgical History No pertinent past surgical history Family History Mother Chronic kidney disease (CKD) Sister Hypertension Thyroid disease Denies family history of Colon cancer Ovarian cancer Diabetes Hyperlipidemia Breast cancer Lung disease Cancer Uterine cancer Stroke Social History Smoking and tobacco/nicotine status: current every day tobacco/nicotine user (vape use) Physical Exam 2 Const: COMMON NORMALS: no acute distress, average body habitus, patient oriented x3, no limitations, alert and well nourished GENERAL APPEARANCE: c ooperative ORIENTATION/CONSCIOUSNESS: Yes awake OTHER: Tired appearing HENMT: COMMON NORMALS: normocephalic, atraumatic and moist oral mucous membranes HEAD & SCALP: normocephalic and atraumatic Eye: COMMON NORMALS: Equal, round and reactive pupils present, EOMs intact bilaterally, conjunctivae normal and normal visual fuentes by confrontation C ONJUNCTIVA: Yes conjunctivae normal PUPIL: Yes Equal, round and reactive pupils present Neck/C-Spine: COMMON NORMALS: full ROM, supple, no meningeal signs and no JVD Resp: COMMON NORMALS: normal respiratory effort, No retractions, No use of accessory muscles and clear to auscultation bilaterally AUSCULTATION: clear to auscultation bilaterally, no crackles, no rales, no rhonchi and no wheezes Cardio: COMMON NORMALS: no JVD, regular rate, regular rhythm, S1 normal heart sound present, S2 normal heart sound present, No gallops present (Cardio), No clicks present (Cardio), No murmurs present (Cardio), No rub (Cardio) and Peripheral pulses 2+ throughout RATE: regular rate RHYTHM: regular rhythm HEART SOUNDS: S1 normal heart sound present and S2 normal heart sound present PERIPHERAL PULSES: Peripheral pulses 2+ throughout GI: COMMON NORMALS: Normal to inspection, nondistended, normoactive bowel sounds present, Soft to palpation, No hepatosplenomegaly present and no masses AUSCULTATION: Yes normoactive bowel sounds PALPATION: Yes Soft to palpation, Yes Tenderness to palpation present (GI) (Suprapubic/bilateral lower quadrants), No Guarding due to palpation present (GI), No Rigid due to palpation and Yes No hepatosplenomegaly present RECTAL EXAM: deferred : COMMON NORMALS: Yes no CVA tenderness BLADDER/KIDNEY EXAM: Yes no CVA tenderness Back/Pelvis: COMMON NORMALS: no CVA tenderness Extremity: COMMON NORMALS: normal to inspection and full ROM Neuro: COMMON NORMALS: patient oriented x3, moves all extremities, no focal motor deficits and no sensory deficits noted SENSORIUM/ORIENTATION: Yes alert MENINGEAL SIGNS: Yes no meningeal signs Psych: COMMON NORMALS: mental status grossly normal, cooperative and speech normal SPEECH: Yes normal speech Skin: COMMON NORMALS: no rashes or lesions noted GENERAL SKIN EXAM: no rashes or lesions noted Course 2 Vital Signs: Vital signs: Vital Signs Temperature 98.2 F 07/18/24 17:03 Pulse Rate 119 H 07/18/24 21:16 Respiratory Rate 18 07/18/24 21:16 Blood Pressure 115/64 07/18/24 21:16 Pulse Oximetry 97 07/18/24 21:16 Oxygen Delivery Me thod Room Air 07/18/24 19:00 MDM - Nausea/Vomiting/Diarrhea Medical Decision Making Patient presented with severe nausea abdominal cramping today. History of spontaneous . Tachycardic, afebrile. Blood pressure has been normal, she did note a history of preeclampsia. Urinalysis did show signs of urinary tract infection during . Lab work unremarkable, normal kidney function. Potentially dehydration, she was given liter of fluids for this. Does note feeling better after also receiving Zofran, we will start her on Macrobid and have her follow-up with OB, she already has an appointment on Wednesday. She is comfortable with this plan, will be discharged home after fluids done running. Discussed case with Dr. Fitzpatrick. Strict return precautions were given such as any bleeding or worsening of symptoms. Lab Data 07/18/24 17:29 07/18/24 17: Radiology Impressions Ultrasound 07/18/24 19:05 IMPRESSION: 1. Single viable intrauterine as detailed. 2. Negative exam for ovarian torsion. 3. Unilocular right ovarian cyst. Laboratory Results WBC 8.70 10^3/uL (3.29-11.43) 07/18/24 17: RBC 5.50 10^6/uL (3.85-5.65) 07/18/24 17: Hgb 13.90 g/dL (11.27-16.99) 07/18/24: Hct 43.5 % (36-47) 07/18/24 17: MCV 79.1 fl (85-98) L 07/18/24 17: MCH 25.3 pg (27-33) L 07/18/24: MCHC 32.0 g/dL (30-55) 07/18/24: RDW 15.0 % (12.1-15.1) 07/18/24: Plt Count 294 10^3/cmm (157-399) 07/18/24: MPV 10.0 fL (7.4-10.4) 07/18/24: Neut % (Auto) 93.2 % 07/18/24: Lymph % (Auto) 3.2 % 07/18/24: [place] % (Auto) 3.0 % 07/18/24: Eos % (Auto) 0.3 % 07/18/24: Baso % (Auto) 0.2 % 07/18/24: Neut # (Auto) 8.10 10^3/uL (1.8-7.7) H 07/18/24: Lymph # (Auto) 0.3 10^3/uL (0.8-4.8) L 07/18/24 17: [place] # (Auto) 0.3 10^3/uL (0.2-0.9) 07/18/24:29 Eos # (Auto) 0.0 10^3/uL (0.0-0.8) 07/18/24 17: Baso # (Auto) 0.0 10^3/uL (0.0-0.1) 07/18/24 17: Nucleated RBC % (auto) 0 % 07/18/24 17: Nucleated RBCs # 0.0 /100WBC 07/18/24 17: Sodium 137 mmol/L (136-145) 07/18/24 17: Potassium 3.9 mmol/L (3.5-5.1) 07/18/24 17: Chloride 101 mmol/L (98-107) 07/18/24 17: Carbon Dioxide 22 mmol/L (22-29) 07/18/24: Anion Gap 17.9 (5-19) 07/18/24 17: BUN 11 mg/dL (6-20) 07/18/24 17: Creatinine 0.6 mg/dL (0.5-0.9) 07/18/24 17: GFR Calculation 123.9 mL/min (90-130) 07/18/24 17: Glucose 102 mg/dL (65-115) 07/18/24 17: Calculated Osmolality 284 mOsm/kg (285-295) L 07/18/24 17: Calcium 9.5 mg/dL (8.5-10.5) 07/18/24 17: Total Bilirubin 1.1 mg/dL (0.15-1.2) 07/18/24 17: AST 13 U/L (0-32) 07/18/24 17: ALT 16 U/L (0-33) 07/18/24 17: Alkaline Phosphatase 73 U/L (35-105) 07/18/24 17: Total Protein 8.2 g/dL (6.6-8.7) 07/18/24 17: Albumin 4.9 g/dL (3.5-5.2) 07/18/24 17: Globulin 3.3 g/dL (1.3-4.6) 07/18/24 17: Lipase 21 U/L (13-60) 07/18/24 17: Ser , Semi-Qnt 86226.00 mIU/mL 07/18/24 17:29 Urine Color Yellow (Yellow) 07/18/24 19:00 Urine Appearance Cloudy (CLEAR) A 07/18/24 19:00 Urine pH 7.0 (5-7) 07/18/24 19:00 Ur Specific [place] 1.026 (1.005-1.030) 07/18/24 19:00 Urine Protein Trace (Negative) A 07/18/24 19:00 Urine Glucose (UA) Negative (Normal) 07/18/24 19:00 Urine Ketones 1+ (Negative) H 07/18/24 19:00 Urine Blood Negative (Negative) 07/18/24 19:00 Urine Nitrate Negative (Negative) 07/18/24 19: Urine Bilirubin Negative (Negative) 07/18/24 19: Urine Urobilinogen 1.0 mg/dL (Negative) 07/18/24 19:00 Ur Leukocyte Esterase 1+ (Negative) A 07/18/24 19:00 Urine RBC 3-5 /hpf (0-2) 07/18/24 19:00 Urine WBC 21-50 /hpf (0-5) H 07/18/24 19:00 Ur Squamous Epith Cells 6-10 /hpf (0-5) 07/18/24 19:00 Amorphous Sediment Not Reportable 07/18/24 19:00 Urine Bacteria 1+ /hpf (NONE) H 07/18/24 19:00 Hyaline Casts 2.05 /lpf 07/18/24 19:00 All radiology interpretation(s) finalized by discharge Discharge Plan Discharge Patient Disposition: Home Clinical Impression: Infection of urinary tract during Qualifiers: Trimester: first trimester Qualified Code(s): O23.41 - Unspecified infection of urinary tract in , first trimester Condition: Stable Prescriptions: New nitrofurantoin monohyd/m-cryst [Macrobid] 100 mg capsule 100 mg PO BID 10 Days Qty: 20 0RF Rx Instructions: must administer with a meal/food No Action Alive Daily Support 180 mcg-25 mg- 25 mg tablet,chewable PO ondansetron 4 mg tablet,disintegrating 4 mg PO Q8H PRN (Reason: nausea and vomiting) Qty: 90 0RF Rx Instructions: take one tab as needed for nausea Discharge Orders: Discharge ED (Routine); Ordered 07/18/24 Ordered By: Sanchez Cabral Referrals: Alfonso Slaughter MD [Primary Care Provider] - Patient Instructions: Urinary Tract Infection in (ED) Activity Restrictions/Additional Instructions: Take Macrobid as prescribed. Follow-up with OB on Thursday as planned. Drink plenty of fluids. Please return with any vaginal bleeding, worsening pain, or any general worsening of symptoms. Coding Level of Care Code ED Wind Field Manager for Nallely Stewart
[2024-07-18] MEDS: nitrofurantoin SR (BID) 100 mg Capsule PO (21:04)
[2024-07-18] MEDS: acetaminophen 500 mg Tablet 1000 MG PO (21:04)
[2024-07-18 21:16] VITALS: BP 115/64; PULSE 119; RESP 18; O2SAT 97
[2024-07-18 21:17] VITALS: BP 126/67; PULSE 112; O2SAT 96
== END 2024-07-18 21:19 | disposition home or self-care (01) ==
PROVIDERS: Emergency Medicine; Emergency Provider Physician Assistant; PCP Family Medicine
DX: O23.41 Unspecified infection of urinary tract in pregnancy, first trimester (principal); F17.290 Nicotine dependence, other tobacco product, uncomplicated; Z3A.08 8 weeks gestation of pregnancy
CPT/HCPCS: 36415; 76801; 80053; 81001; 83690; 84702; 85025; 87086; 96374; 99284; J2405; J7030

== ENCOUNTER → 2024-08-09 10:53 | Outpatient (BNVA) | payer BC, MEDICAID, SELFPAY | PROVIDERS: PCP Family Medicine; Visit Provider Nurse Practitioner Women's Health | DX: Z34.90 Encounter for supervision of normal pregnancy, unspecified, unspecified trimester (principal) | CPT/HCPCS: 80307; 84315; 85025; 86592; 86762; 86803; 86850; 86900; 87086; 87340; 87491; 87591; 87661; 87806 ==

== ENCOUNTER → 2024-08-24 09:29 | Outpatient (BNVA) | payer BC, MEDICAID, SELFPAY | PROVIDERS: PCP Family Medicine; Visit Provider Obstetrics & Gynecology | DX: Z34.90 Encounter for supervision of normal pregnancy, unspecified, unspecified trimester (principal); Z01.419 Encounter for gynecological examination (general) (routine) without abnormal findings | CPT/HCPCS: 84315; 87624 ==

== ENCOUNTER → 2024-09-14 14:18 | Outpatient (BNVA) | payer BC, MEDICAID, SELFPAY | PROVIDERS: PCP Family Medicine; Visit Provider Nurse Practitioner Women's Health | DX: Z34.90 Encounter for supervision of normal pregnancy, unspecified, unspecified trimester (principal); O23.40 Unspecified infection of urinary tract in pregnancy, unspecified trimester | CPT/HCPCS: 82105; 84315; 87086 ==

== ENCOUNTER → 2024-10-12 14:28 | Outpatient (BNVA) | payer BC, MEDICAID, SELFPAY | PROVIDERS: PCP Family Medicine; Visit Provider Obstetrics & Gynecology | DX: Z34.92 Encounter for supervision of normal pregnancy, unspecified, second trimester (principal) | CPT/HCPCS: 76805 ==

== ENCOUNTER → 2024-10-20 14:58 | Outpatient (BNVA) | payer BC, MEDICAID, SELFPAY | PROVIDERS: PCP Family Medicine; Visit Provider Obstetrics & Gynecology | DX: Z34.90 Encounter for supervision of normal pregnancy, unspecified, unspecified trimester (principal) | CPT/HCPCS: 84315 ==

== ENCOUNTER → 2024-11-10 14:21 | Outpatient (BNVA) | payer BC, MEDICAID, SELFPAY | PROVIDERS: PCP Family Medicine; Visit Provider Nurse Practitioner Women's Health | DX: Z34.90 Encounter for supervision of normal pregnancy, unspecified, unspecified trimester (principal) | CPT/HCPCS: 84315 ==

== ENCOUNTER → 2024-12-08 14:24 | Outpatient (BNVA) | payer BC, MEDICAID, SELFPAY | PROVIDERS: PCP Family Medicine; Visit Provider Obstetrics & Gynecology | DX: Z34.90 Encounter for supervision of normal pregnancy, unspecified, unspecified trimester (principal) | CPT/HCPCS: 82950; 84315; 85025 ==

== ENCOUNTER → 2024-12-22 15:47 | Outpatient (BNVA) | payer BC, MEDICAID, SELFPAY | PROVIDERS: PCP Family Medicine; Visit Provider Obstetrics & Gynecology | DX: Z34.90 Encounter for supervision of normal pregnancy, unspecified, unspecified trimester (principal) | CPT/HCPCS: 84315 ==

== ENCOUNTER 2024-12-23 12:08 | Outpatient (CLI) | payer BC, MEDICAID, SELFPAY ==
[2024-12-23 12:11] VITALS: BMI 22.1
[2024-12-23 12:21] VITALS: BP 121/76; PULSE 81
[2024-12-23 12:26] VITALS: RESP 15
[2024-12-23 12:36] VITALS: BP 114/66; PULSE 76
[2024-12-23 12:36] LABS: Bilirubin Urine Negative (Negative); Blood Urine 3+ (Negative); Glucose Urine UA Negative (Normal); Ketones Urine Trace (Negative); Leukocyte Esterase Urine 1+ (Negative); Nitrate Urine Negative (Negative); Protein Urine Trace (Negative); Specific Gravity, Urine 1.019 (1.005-1.030); Urine Appearance Cloudy (CLEAR); Urine Color Yellow (Yellow); pH Urine 6.5 (5-7)
[2024-12-23 12:38] LABS: Bacteria Urine None Seen /hpf; Hyaline Casts Urine 1.65 /lpf; RBC Urine >100 /hpf (0-2); Squamous Epithelial Cell Urine 0-5 /hpf (0-5)
[2024-12-23 12:39] LABS: Add Urine Culture? Yes
[2024-12-23 12:51] VITALS: BP 114/69; PULSE 79
[2024-12-23 13:03] VITALS: BP 114/69; PULSE 79; RESP 15
== END 2024-12-23 13:03 | disposition home or self-care (01) ==
LOC: OPOB 12:08 → OBGYN 12:09
PROVIDERS: PCP Family Medicine; Visit Provider Obstetrics & Gynecology
DX: O26.899 Other specified pregnancy related conditions, unspecified trimester (principal); Z3A.00 Weeks of gestation of pregnancy not specified; R10.84 Generalized abdominal pain
CPT/HCPCS: 59025; 81001; 87086; 99211

== ENCOUNTER → 2025-01-05 16:11 | Outpatient (BNVA) | payer BC, MEDICAID, SELFPAY | PROVIDERS: PCP Family Medicine; Visit Provider Obstetrics & Gynecology | DX: Z34.90 Encounter for supervision of normal pregnancy, unspecified, unspecified trimester (principal) | CPT/HCPCS: 84315 ==

== ENCOUNTER → 2025-01-19 13:38 | Outpatient (BNVA) | payer BC, MEDICAID, SELFPAY | PROVIDERS: PCP Family Medicine; Visit Provider Nurse Practitioner Women's Health | DX: Z36.9 Encounter for antenatal screening, unspecified (principal) | CPT/HCPCS: 76816 ==

== ENCOUNTER → 2025-02-02 13:40 | Outpatient (BNVA) | payer BC, MEDICAID, SELFPAY | PROVIDERS: PCP Family Medicine; Visit Provider Nurse Practitioner Women's Health | DX: Z3A.36 36 weeks gestation of pregnancy (principal); Z34.90 Encounter for supervision of normal pregnancy, unspecified, unspecified trimester | CPT/HCPCS: 84315; 87081 ==

== ENCOUNTER → 2025-02-09 15:44 | Outpatient (BNVA) | payer BC, MEDICAID, SELFPAY | PROVIDERS: PCP Family Medicine; Visit Provider Obstetrics & Gynecology | DX: Z34.90 Encounter for supervision of normal pregnancy, unspecified, unspecified trimester (principal) | CPT/HCPCS: 84315 ==

== ENCOUNTER 2025-02-12 08:43 | Outpatient (CLI) | payer BC, MEDICAID, SELFPAY ==
[2025-02-12 08:43] VITALS: BMI 23.6
[2025-02-12 08:59] VITALS: BP 116/72; PULSE 85
[2025-02-12 09:20] VITALS: BP 111/75; PULSE 92
[2025-02-12 09:35] VITALS: BP 110/75; PULSE 84
[2025-02-12 09:42] VITALS: BP 110/75; PULSE 84; RESP 16; O2SAT 98
== END 2025-02-12 09:42 | disposition home or self-care (01) ==
LOC: OPOB 08:49 → OBGYN 08:50
PROVIDERS: PCP Family Medicine; Visit Provider Obstetrics & Gynecology
DX: O26.899 Other specified pregnancy related conditions, unspecified trimester (principal); Z3A.00 Weeks of gestation of pregnancy not specified; R10.9 Unspecified abdominal pain
CPT/HCPCS: 59025; 99211

== ENCOUNTER 2025-02-18 21:28 | Outpatient (CLI) | payer BC, MEDICAID, SELFPAY ==
[2025-02-18] VITALS (9 sets, daily range): BP systolic 83–118; BP diastolic 53–78; PULSE 66–75; BMI 23.8
[2025-02-19 00:04] VITALS: BP 110/69; PULSE 61
[2025-02-19 00:18] VITALS: BP 116/67; PULSE 70
[2025-02-19 01:17] VITALS: BP 116/67; PULSE 79; RESP 16; TEMP 36.1; O2SAT 99
== END 2025-02-19 00:28 | disposition home or self-care (01) ==
LOC: OPOB 21:29 → OBGYN 21:30
PROVIDERS: PCP Family Medicine; Visit Provider Obstetrics & Gynecology
DX: O26.899 Other specified pregnancy related conditions, unspecified trimester (principal); Z3A.00 Weeks of gestation of pregnancy not specified; R10.9 Unspecified abdominal pain
CPT/HCPCS: 59025; 99211

== ENCOUNTER 2025-02-22 01:28 | Inpatient (IN) | payer BC, MEDICAID, SELFPAY ==
[2025-02-21] VITALS (18 sets, daily range): BP systolic 112–133; BP diastolic 65–85; PULSE 75–104; RESP 17; O2SAT 92–96; BMI 23.9
[2025-02-21 21:46] LABS: Hematocrit 32.1 % (36-47); Hemoglobin 10.20 g/dL (11.27-16.99); Mean Corpuscular HGB Conc 31.8 g/dL (30-55); Mean Corpuscular Hemoglobin 24.5 pg (27-33); Mean Corpuscular Volume 77.0 fl (85-98); Nucleated Red Blood Cells % 0 %; Platelet Count 244 10^3/cmm (157-399); Red Blood Count 4.17 10^6/uL (3.85-5.65); White Blood Count 9.71 10^3/uL (3.29-11.43)
[2025-02-21] MEDS: ROPivacaine syringe 100 MG/50 ML SYRINGE 13 MG EPIDURAL (23:05)
--- NOTE | 2025-02-21 23:10 | ANES.PREANE2 ---
Pre-Anesthetic Assessment Height/Weight: Height 1.75 m Weight 73.482 kg Pulse Resp BP Pulse Ox O2 Del Method 83 17 122/74 96 Room Air 02/21/25 23:03 02/21/25 21:06 02/21/25 23:03 02/21/25 22:58 02/21/25 21:05 Epidural Familial anesthetic complications: None Was Beta Miller taken within 24 hours: N/A Was Clonidine taken within 24 hours: N/A Last intake: 1999 solids Social No alcohol and No tobacco (Quit vaping in June ) Exam alert, oriented x 3, clear to auscultation bilaterally and regular rate & rhythm Airway Submandibular: within normal limits Cervical ROM: within normal limits Mallampati: Class II Dentition: full Comments: Comments: Missing bottom left molar, denies any loose History/ROS No significant history except as noted and No significant complaints Pulmonary None reported CV/HEM Anemia None reported Hepatic None reported GI Gastroesophageal Reflux Disease (N/V in ) Metabolic None reported Musc/skel None reported Neuropsych None reported Anesthetic Plan ASA status: 2 Anesthesia: Anesthesia Evaluation, General and Regional (specify below) (Epidual) Risk of > 500 ml blood loss (7ml/kg in children): Yes, adequate IV access and fluids planned Medications/Allergies Home Medications ?Medication ?Instructions ?Recorded ?Confirmed ?Last Taken ?Type mv-mn no.97-folic 180 mcg-dha 25 1 tab PO DAILY 06/29/24 02/21/25 02/21/25 History mg-herb no.293 25 mg chewable tablet (Alive Daily Support ) ondansetron 4 mg disintegrating 4 mg PO Q8H PRN nausea and 07/18/24 02/21/25 02/21/25 Rx tablet vomiting #90 tabs famotidine 20 mg tablet (Pepcid) 20 mg PO BID #60 tabs 01/19/25 02/21/25 02/21/25 Rx Allergies Allergy/AdvReac Type Severity Reaction Status Date / Time diphenhydramine (From Allergy ALGY-Hives Verified 02/21/25 21:13 Benadryl) Current Medications Generic Name Dose Route Start Last Admin Trade Name Freq PRN Reason Stop Dose Admin Dextrose/Lactated Ringer's 1,000 mls @ 125 mls/hr 02/21/25 21:15 02/21/25 22:51 Dextrose 5%-Lactated Ringers IV 125 mls/hr .Q8H ELIZABETH Administration Sodium Chloride 1,000 mls @ 999 mls/hr 02/21/25 21:16 02/21/25 21:52 Sodium Chloride 0.9% IV 999 mls/hr .Q1H1M PRN Administration See label comments PFSH Anesthesia Medical History Vaginal delivery Tick bite of right shoulder PCOS (polycystic ovarian syndrome) No pertinent past medical history neghx:htn,dm,thyroid,dvt/pe PCP: Dr. Slaughter Surgical History No pertinent past surgical history Family History Mother Chronic kidney disease (CKD) Sister Hypertension Thyroid disease Diabetes Father Diabetes Denies family history of Colon cancer Ovarian cancer Hyperlipidemia Breast cancer Lung disease Cancer Uterine cancer Stroke Social History Smoking and tobacco/nicotine status: never used tobacco/nicotine Female Reproductive History : 3 Data Anesthesia 02/21/25 21:36 Short CBC 02/21/25 Range/Units 21:36 WBC 9.71 (3.29-11.43) 10^3/uL Hgb 10.20 L (11.27-16.99) g/dL Hct 32.1 L (36-47) % MCV 77.0 L (85-98) fl Plt Count 244 (157-399) 10^3/cmm Neut % (Auto) 67.4 % Neut # (Auto) 6.54 (1.8-7.7) 10^3/uL Blood Bank 02/21/25 21:36 Blood Type O Positive Rho(D) Type Rh positive Antibody Screen Negative
--- NOTE | 2025-02-21 23:13 | ANES.PROC ---
Anesthesia Procedures Procedure/Date: 02/22/25 Epidural: Time Out Performed: Yes Consents Signed: Procedure Consent and NPO Consent Consent: requested by attending/covering physician, from patient, risks and benefits reviewed and patient agrees to proceed Lumbar Level: L3-L4 Epidural position: sitting Epidural procedure: sterile prep of area (betadine), 1% lidocaine to numb the area (3 mLs), neg for paresthesia, test dose given, 1.5% xylocaine 1:200k epi (3 mLs/ 2 mLs), 0.2% Ropivacaine bolus ml (3 mLs), placed PCEA, no systemic response, sterile dressing applied, L.U.D. no apparent complications and 0.2% Ropiavacaine @ mls/hr (13) Additional Comments: BECCA 4cm, catheter threaded to 11cm at skin. Negative aspiration for blood/CSF. Patient educated on WELDING MACHINE OPERATOR [employer] button, verbalized understanding. 2330: Patient compains of lower abdominal pain with contractions. 100mcg fentanyl plus 8ml 0.25% PF bupivacaine administered via epidural. 1200: Inadequate anelgesia despite WELDING MACHINE [employer] and previous bolus. Patient agreeable to another epidural. Previous epidural removed with tip intact. CSE performed at L2-L3 space, BECCA at 4cm, CSF noted via spinal, and 0.4 mL 0.25% PF bupivacaine given. Spinal needle removed, epidural catheter threaded to 11cm and epidural pump restarted at previous rate. Patient verbalizes adequate analgesia.
[2025-02-21] MEDS: ondansetron 2 mg/ML SDV 2 mL 4 MG IVP (23:57)
[2025-02-22] VITALS (39 sets, daily range): BP systolic 107–132; BP diastolic 57–82; PULSE 62–99; RESP 16–17; TEMP 36.4–36.7; O2SAT 94–99
[2025-02-22] MEDS: ROPivacaine syringe 100 MG/50 ML SYRINGE 13 MG EPIDURAL (01:28)
--- NOTE | 2025-02-22 01:50 | P.HP_ITS ---
Providers/Chief Complaint 2 Admitting Physician: Leonides Ayala MD Primary TEMPERATURE CONTROL INSPECTOR: Leonides Ayala MD Primary Care Provider: Alfonso Slaughter MD Chief Complaint: contractions HPI TEMPERATURE CONTROL INSPECTOR History of Present Illness Patient was admitted on February 21, 2025, at 2125 23 y.o. SA1 EDC February 28, 2025 At 39 w 0 d No complications Presents c/o painful uterine contractions No bleeding or fluid leakage + active movements Present Details : 3 Para: 1 Labs Rubella: Immune RPR: Negative GBS: Negative Medications/Allergies Home Medications ?Medication ?Instructions ?Recorded ?Confirmed ?Last Taken ?Type mv-mn no.97-folic 180 mcg-dha 25 1 tab PO DAILY 02/21/25 02/21/25 History mg-herb no.293 25 mg chewable tablet (Alive Daily Support ) ondansetron 4 mg disintegrating 4 mg PO Q8H PRN nausea and 07/18/24 02/21/25 02/21/25 Rx tablet vomiting #90 tabs famotidine 20 mg tablet (Pepcid) 20 mg PO BID #60 tabs 01/19/25 02/21/25 02/21/25 Rx Allergies Allergy/AdvReac Type Severity Reaction Status Date / Time diphenhydramine (From Allergy ALGY-Hives Verified 02/21/25 21:13 Benadryl) PFSH TEMPERATURE CONTROL INSPECTOR 2 PFSH: Medical History Vaginal delivery Tick bite of right shoulder PCOS (polycystic ovarian syndrome) No pertinent past medical history neghx:htn,dm,thyroid,dvt/pe PCP: Dr. Slaughter Surgical History No pertinent past surgical history Family History Mother Chronic kidney disease (CKD) Sister Hypertension Thyroid disease Diabetes Father Diabetes Denies family history of Colon cancer Ovarian cancer Hyperlipidemia Breast cancer Lung disease Cancer Uterine cancer Stroke Social History Smoking and tobacco/nicotine status: never used tobacco/nicotine Other Female Reproductive History: Duration of menses: 3-5 days Menstrual flow: normal/abnormal: normal Personal Safety: Do you feel safe at home: Yes Victim of physical abuse: No Victim of emotional abuse: No Victim of sexual abuse: No Would you like help information on resources?: No History History History 2 3 Term 1 0 Miscarriages/Ectopic 1 Living Children 1 Care COLE Calculator 2 Estimated Delivery Date Method Current WG Current Estimate 02/28/25 LMP (Certain) 39w 1d Other Estimates 02/24/25 Ultrasound #1 39w 5d Specific Issues/Plans * * NAUSEA: zofran as needed * UTI IN : Treated for UTI in ER on 07/18/24, repeat urine culture on 08/09/24 clear Vitals/I&O/Wt Last Vital Signs Pulse 83 02/22/25 05:22 Resp 17 02/21/25 21:06 BP 113/71 02/22/25 05:22 Pulse Ox 99 02/22/25 00:16 O2 Del Method Room Air 02/21/25 21:05 02/21/25 02/21/25 02/22/25 14:59 22:59 06:59 Intake Total 1000 / 1000 50 / 1050 Output Total 200 / 200 Balance 1000 / 1000 -150 / 850 Weight last 48 hrs Weight 162 lb Physical Exam 2 Narrative: Weight 160 lbs; 5?9? General awake, alert VS normal Lungs: clear Cor: RRR FH 36 cm , cephalic Cervix: 4 cm / 90% / 0 / posterior Ext: no edema External monitor: regular UCs heart tracing good variability, + accelerations Urinary Catheter Management: Storey Latex: Cath Placed During This Visit: yes Urinary Catheter Date of Insertion: 02/22/25 Urinary Catheter Time of Insertion: 01:08 Data 02/21/25 21:36 Results Labs OB ([facility]): 2 Obstetrics US 01/19/25 Blood Type O Positive 02/21/25 Antibody Screen Negative 02/21/25 Hct, (36-47) 32.1 % L 02/21/25 Hgb, (11.27-16.99) 10.20 g/dL L 02/21/25 Rho(D) Type Rh positive 02/21/25 Plt Count, (157-399) 244 10^3/cmm 02/21/25 Hep Bs Antigen, (Nonreactive) Non-reactive 08/09/24 Hepatitis C Antibody, (Nonreactive) Non-reactive 07/30 07/23 Rubella IgG Antibody, (0.0-10.0) 63.6 IU/mL H 5 RPR, (Nonreactive) Nonreactive 08/09/24 HIV 1&2 Ab & HIV 1 Ag, (Non-Reactiv) Non-reactive 05/23 Glucose 1 Hr 50 gm, (85-140) 111 mg/dL 12/08/24 Ser , Semi-Qnt 19062.00 mIU/mL 07/18/24 HCG, Qual, (Negative) Positive H 07/11/24 Urine Opiates Screen, (Negative) Negative ng/mL 5 Ur Barbiturates Screen, (Negative) Negative ng/mL 08/09 Ur Phencyclidine Scrn, (Negative) Negative ng/mL Ur Amphetamines Screen, (Negative) Negative ng/mL 08/09 U Benzodiazepines Scrn, (Negative) Negative ng/mL 08/09 Urine Cocaine Screen, (Negative) Negative ng/mL 5 U Marijuana (THC) Screen, (Negative) Negative ng/mL 05/23 Micro Urine Specimen 12/23/24 Pap Smear Interpret See note 08/24/24 A&P Assessment and plan 1. , unspecified gestational age: 39 w 0 d Active labor Fetus reassuring Admit Labor management h/o x one PDMP PDMP Reviewed: Not Reviewed Attestations 2 Medical Necessity Statement*: patient at 39 w 0 d, with active labor Coding Level of Care Code Acute Code for Chg Fwd Diagnoses , unspecified gestational age Z34.90 Weeks of gestation: unspecified
[2025-02-22] MEDS: oxytocin 30 UNIT/500 ML BAG 600 UNIT IV (02:09)
--- NOTE | 2025-02-22 02:20 | PM.DELIVERY ---
Delivery Note: Date of delivery: February 22, 2025 Pre-delivery diagnoses: 39 w 0 d active labor Post-delivery diagnoses: 39 w 0 d active labor vaginal delivery repair of second-degree perineal laceration Procedure: vaginal delivery repair of second-degree perineal laceration Op report anesthesia: Epidural Delivering Physician: Leonides Ayala MD Estimated blood loss (mL): 300 Findings: , vigorous Cord gases and blood obtained Normal placenta and cord Small second-degree perineal laceration repaired EBL: 300 cc No complications Pre-Delivery Course: normal labor course fetus was reassuring throughout Delivery: vaginal Post-Delivery Status: good History History History 3 Term 1 0 Miscarriages/Ectopic 1 Living Children 1 A&P Assessment and plan 1. Vaginal delivery: PDMP PDMP Reviewed: Not Reviewed Coding Level of Care Code Acute Code for Chg Fwd Diagnoses Vaginal delivery O80
--- NOTE | 2025-02-22 05:34 | ANE.PACU2 ---
Inpatient post-anesthesia follow up: Airway intact: Yes Vital signs: Temperature 98.7 F Pulse Rate 82 Respiratory Rate 18 Blood Pressure 130/82 Pulse Oximetry 98 Oxygen Delivery Me thod Room Air Oxygen Flow Rate Fraction of Inspir ed Oxygen Hydration adequate: Yes Nausea and vomiting: No Pain level: 1 Mental status: Baseline Epidural Start/End: Epidural Start Date: 02/21/25 Epidural Start Time: 22:46 Epidural End Date: 02/22/25 Epidural End Time: 05:34
[2025-02-22] MEDS: benzocaine-menthol 78 gm Canister 1 SPRAY TOPICAL (08:36)
[2025-02-22] MEDS: PRENATAL VIT NO.130/IRON/FOLIC 1 EACH TABLET PO (08:37)
[2025-02-22 14:04] LABS: Hematocrit 29.5 % (36-47); Hemoglobin 9.20 g/dL (11.27-16.99); Mean Corpuscular HGB Conc 31.2 g/dL (30-55); Mean Corpuscular Hemoglobin 24.3 pg (27-33); Mean Corpuscular Volume 77.8 fl (85-98); Platelet Count 206 10^3/cmm (157-399); Red Blood Count 3.79 10^6/uL (3.85-5.65); White Blood Count 10.47 10^3/uL (3.29-11.43)
[2025-02-23 04:48] VITALS: BP 114/74; PULSE 79; RESP 16; TEMP 36.8
[2025-02-23] MEDS: PRENATAL VIT NO.130/IRON/FOLIC 1 EACH TABLET PO (09:54)
[2025-02-23 10:01] VITALS: BP 109/69; PULSE 100; RESP 18; TEMP 36.4; O2SAT 98
[2025-02-23 14:12] VITALS: BP 130/82; PULSE 82; RESP 18; TEMP 37.1; O2SAT 98
--- NOTE | 2025-02-26 00:29 | P.DS_ITS ---
Discharge Providers BLOW MOLDING MACHINE OPERATOR Date of Admission: 02/22/25 01:28 Date of Discharge: 02/23/25 Attending Provider at Admission: Leonides Ayala MD Attending Provider at Discharge: Leonides Ayala MD Consults: none Primary BLOW MOLDING MACHINE OPERATOR: Leonides Ayala MD Primary Care Provider: Alfonso Slaughter MD Diagnoses at Discharge Discharge Diagnosis 1. Vaginal delivery: Details from hospital stay: 23 y.o. at 39 w 0 d presented to L&D with painful uterine contractions She was 4 cm on admission patient progressed to complete dilatation fetus was reassuring throughout patient delivered vaginally without any complications A second-degree perineal laceration was repaired Patient did well and was discharged to home on the first day She had mild anemia and was asymptomatic Reason for Visit Reason for Visit: contractions Brief History: 23 y.o. at 39 w 0 d presented to L&D with painful uterine contractions Hospital Course Hospital Course 23 y.o. at 39 w 0 d presented to L&D with painful uterine contractions She was 4 cm on admission patient progressed to complete dilatation fetus was reassuring throughout patient delivered vaginally without any complications A second-degree perineal laceration was repaired Patient did well and was discharged to home on the first day She had mild anemia and was asymptomatic Information Peripartum Data: Delivery Method: Vaginal Laceration description: Perineal - 2nd Degree Episiotomy description: None complications: none Physical Exam Narrative: afebrile, VS normal comfortable, awake, alert Lungs: clear Cor: RRR Abd: soft, nontender. fundus firm Ext: no edema; nontender Hgb 9.2 Urinary Catheter Management: Storey Latex: Cath Placed During This Visit: yes, but has since been removed by the nurse Reason for Continuing Indwelling Catheter: Decision to DC Catheter Urinary Catheter Date of Insertion: 02/22/25 Urinary Catheter Time of Insertion: 01:08 Date Urinary Catheter Removed: 02/22/25 Time Urinary Catheter Discontinued: 02:00 History History History 3 Term 1 0 Miscarriages/Ectopic 1 Living Children 1 Discharge Data Studies Completed and Pending Laboratory Results WBC 10.47 10^3/uL (3.29-11.43) 02/22/25 13:50 RBC 3.79 10^6/uL (3.85-5.65) L 02/22/25 13:50 Hgb 9.20 g/dL (11.27-16.99) L 02/22/25 13:50 Hct 29.5 % (36-47) L 02/22/25 13:50 MCV 77.8 fl (85-98) L 02/22/25 13:50 MCH 24.3 pg (27-33) L 02/22/25 13:50 MCHC 31.2 g/dL (30-55) 02/22/25 13:50 RDW 16.3 % (12.1-15.1) H 02/22/25 13:50 Plt Count 206 10^3/cmm (157-399) 02/22/25 13:50 MPV 10.5 fL (7.4-10.4) H 02/22/25 13:50 Neut % (Auto) 67.4 % 02/21/25 21:36 Lymph % (Auto) 25.3 % 02/21/25 21:36 [place] % (Auto) 5.7 % 02/21/25 21:36 Eos % (Auto) 0.9 % 02/21/25 21:36 Baso % (Auto) 0.3 % 02/21/25 21:36 Neut # (Auto) 6.54 10^3/uL (1.8-7.7) 02/21/25 21:36 Lymph # (Auto) 2.5 10^3/uL (0.8-4.8) 02/21/25 21:36 [place] # (Auto) 0.6 10^3/uL (0.2-0.9) 02/21/25 21:36 Eos # (Auto) 0.1 10^3/uL (0.0-0.8) 02/21/25 21:36 Baso # (Auto) 0.0 10^3/uL (0.0-0.1) 02/21/25 21:36 Nucleated RBC % (auto) 0 % 02/21/25 21:36 Nucleated RBCs # 0.0 /100WBC 02/21/25 21:36 Blood Type O Positive 02/21/25 21:36 Rho(D) Type Rh positive 02/21/25 21:36 Antibody Screen Negative 02/21/25 21:36 Procedures Performed vaginal delivery Vitals Last Vital Signs Temp 98.7 F 02/23/25 14:12 Pulse 82 02/23/25 14:12 Resp 18 02/23/25 14:12 BP 130/82 02/23/25 14:12 Pulse Ox 98 02/23/25 14:12 O2 Del Method Room Air 02/23/25 10:01 Results Labs OB ([facility]): Obstetrics 01/19/25 Blood Type O Positive 02/21/25 Antibody Screen Negative 02/21/25 Hct, (36-47) 29.5 % L 02/22/25 Hgb, (11.27-16.99) 9.20 g/dL L 02/22/25 Rho(D) Type Rh positive 02/21/25 Plt Count, (157-399) 206 10^3/cmm 02/22/25 Hep Bs Antigen, (Nonreactive) Non-reactive 08/09/24 Hepatitis C Antibody, (Nonreactive) Non-reactive 07/30 07/23 Rubella IgG Antibody, (0.0-10.0) 63.6 IU/mL H 5 RPR, (Nonreactive) Nonreactive 08/09/24 HIV 1&2 Ab & HIV 1 Ag, (Non-Reactiv) Non-reactive 05/23 Glucose 1 Hr 50 gm, (85-140) 111 mg/dL 12/08/24 Ser , Semi-Qnt 89079.00 mIU/mL 07/18/24 HCG, Qual, (Negative) Positive H 07/11/24 Urine Opiates Screen, (Negative) Negative ng/mL 5 Ur Barbiturates Screen, (Negative) Negative ng/mL 08/09 Ur Phencyclidine Scrn, (Negative) Negative ng/mL Ur Amphetamines Screen, (Negative) Negative ng/mL 08/09 U Benzodiazepines Scrn, (Negative) Negative ng/mL 08/09 Urine Cocaine Screen, (Negative) Negative ng/mL 5 U Marijuana (THC) Screen, (Negative) Negative ng/mL 05/23 Micro Urine Specimen 12/23/24 Pap Smear Interpret See note 08/24/24 Discharge Plan Discharge Patient Disposition: Home Condition: Stable Prescriptions: Continued Alive Daily Support 180 mcg-25 mg- 25 mg tablet,chewable 1 tab PO DAILY famotidine [Pepcid] 20 mg tablet 20 mg PO BID Qty: 60 2RF ondansetron 4 mg tablet,disintegrating 4 mg PO Q8H PRN (Reason: nausea and vomiting) Qty: 90 0RF Rx Instructions: take one tab as needed for nausea Discharge Order = DC NOW: Discharge Order (Routine); Ordered 02/23/25 Ordered By: Leonides Ayala Referrals: Norma Wiggins, [facility] [Nurse Practitioner, BLOW MOLDING MACHINE OPERATOR] - 04/06/25 8:45 am Discharge Diet: Usual diet Discharge Activity: Increase activity as tolerated Patient Instructions: Depression (DC), Opioid Safety (DC), Preeclampsia and Eclampsia After Delivery (GEN), Hemorrhage (DC), OB Discharge Report, OB Food/Drug Interaction Guide, Opioid Safety, OB Home Care, OB Vaginal Deliveries - [facility], Patient Portal & Marissa Instructions, Abnormal Bleeding Discharge Attestations BLOW MOLDING MACHINE OPERATOR Time Spent in Discharge Care*: less than 30 min Coding Level of Care Code Acute Code for Chg Fwd Diagnoses Vaginal delivery O80
== END 2025-02-23 14:00 | disposition home or self-care (01) | DRG 807 ==
LOC: OPOB 01:28 → OBGYN 01:28
PROVIDERS: Admitting Provider Obstetrics & Gynecology; PCP Family Medicine; Visit Provider Obstetrics & Gynecology
DX: O70.1 Second degree perineal laceration during delivery (principal); Z37.0 Single live birth; O99.284 Endocrine, nutritional and metabolic diseases complicating childbirth; E28.2 Polycystic ovarian syndrome; O99.02 Anemia complicating childbirth; D64.9 Anemia, unspecified; Z3A.39 39 weeks gestation of pregnancy; O99.62 Diseases of the digestive system complicating childbirth; K21.9 Gastro-esophageal reflux disease without esophagitis
CPT/HCPCS: 36415; 51702; 59025; 59409; 85025; 85027; 86850; 86900; 96374; 99211; J2405; J2590; J2795; J3010; J3490; J7030; J7121; J9999

== ENCOUNTER → 2025-04-06 09:28 | Outpatient (BNVA) | payer BC, MEDICAID, SELFPAY | PROVIDERS: PCP Family Medicine; Visit Provider Nurse Practitioner Women's Health | DX: Z30.017 Encounter for initial prescription of implantable subdermal contraceptive (principal) | CPT/HCPCS: 81025 ==